=== PATIENT | male | born 1930 | race Hispanic/Latino ===

== ENCOUNTER 2017-06-21 08:02 | Emergency (ER) | payer MEDICARE, SELFPAY ==
[2017-06-21] MEDS ORDERED: Magnesium Citrate Oral SOL (300 ml) PO ONE (08:57)
[2017-06-21 09:27] LABS: RBC URINE 30 /hpf (0-3); URINE BILIRUBIN NEGATIVE (NEGATIVE); URINE BLOOD 2+ (NEGATIVE); URINE COLOR Yellow (YELLOW); URINE GLUCOSE (UA) NORMAL (Normal); URINE KETONE NEGATIVE (NEGATIVE); URINE LEUKOCYTE ESTERASE NEG Leu/uL (Negative); URINE PROTEIN NEGATIVE (NEGATIVE); WBC URINE < 1 /hpf (0-5)
[2017-06-21] MEDS ORDERED: Magnesium Citrate Oral SOL (300 ml) ONE (09:32)
--- NOTE | 2017-06-21 10:23 | C.PDOC ---
History Of Present Illness 87 y/o male presents to ED for evaluation of abdominal pain and dysuria for the last 4-5 days. Patient also states he has not had a BM fin 5-6 days. He admits to history of constipation. Patient was seen by visting nurse at home two days ago, has same complaints but denies being given any medication for constipation, instead was instructed to go to ED. Patient states he has taken a medication for constipation once, name unknown, without relief. He denies chest pain, shortness of breath, fever, chills, nausea, vomiting, hematuria. Time Seen by Provider: 06/21/17 08:13 Chief Complaint (Nursing): Abdominal Pain History Per: Patient History/Exam Limitations: no limitations Onset/Duration Of Symptoms: Days (5) Current Symptoms Are (Timing): Still Present Severity: Mild Location Of Pain/Discomfort: Diffuse Radiation Of Pain To:: None Quality Of Discomfort: "Pain" Associated Symptoms: Constipation, Urinary Symptoms (dysruia). denies: Fever, Chills, Nausea, Vomiting, Diarrhea, Loss Of Appetite, Back Pain, Chest Pain Exacerbating Factors: None Alleviating Factors: None. denies: OTC Meds Last Bowel Movement: Days Ago Additional History Per: Patient Past Medical History Reviewed: Historical Data, Nursing Documentation, Vital Signs Vital Signs: Last Vital Signs Temp 98.2 F 06/21/17 11:29 Pulse 86 06/21/17 11:29 Resp 20 06/21/17 11:29 BP 122/80 06/21/17 11:29 Pulse Ox 96 06/21/17 11:29 - Medical History PMH: CHF, HTN, Kidney Stones, Malignancy (SKIN), Chronic Kidney Disease Surgical History: Pacemaker - [facility] Procedures VACCINATION NEC (10/04/13) Family History: States: No Known Family Hx - Social History Hx Tobacco Use: No Hx Alcohol Use: No Hx Substance Use: No - Immunization History Hx Tetanus Toxoid Vaccination: No Hx Influenza Vaccination: No Hx Pneumococcal Vaccination: No Review Of Systems Except As Marked, All Systems Reviewed And Found Negative. Constitutional: Negative for: Fever, Chills Cardiovascular: Negative for: Chest Pain, Palpitations Respiratory: Negative for: Cough, Shortness of Breath Gastrointestinal: Positive for: Abdominal Pain, Constipation. Negative for: Nausea, Vomiting, Diarrhea Genitourinary: Positive for: Dysuria. Negative for: Frequency, Hematuria Musculoskeletal: Negative for: Back Pain Skin: Negative for: Rash Neurological: Negative for: Headache, Dizziness Physical Exam - Physical Exam Appears: Well, Non-toxic, No Acute Distress Skin: Warm, Dry, No Rash Head: Normacephalic Eye(s): bilateral: Normal Inspection Oral Mucosa: Moist Neck: Supple Cardiovascular: Rhythm Regular, No Murmur Respiratory: Normal Breath Sounds, No Rales, No Rhonchi, No Wheezing, Other ( speaking in full sentences) Gastrointestinal/Abdominal: Bowel Sounds, Soft, No Tenderness, Distention (mild) , No Guarding, No Rebound Back: No CVA Tenderness Extremity: Normal ROM Neurological/Psych: Oriented x3 ED Course And Treatment O2 Sat by Pulse Oximetry: 98 (RA) Pulse Ox Interpretation: Normal - Other Rad Obstructive series x-ray X-Ray: Interpreted by Me, Viewed By Me Interpretation: Large amount of stool. No air fluid levels. Progress Note: Obstructive series x-ray, UA ordered and reviewed. Pt was given Colace PO, Magnesium Citrate PO. Reevaluation Time: 10:30 Reassessment Condition: Improved (Patient is s/p large BM, states he feels much better. On exam, abdomen is soft and nontender. He is ambulating normally with his cane, and is well appearing and comfortable being discharged home. UA (-). Rxs given for colace and magnesium citrate, and patient instructed to increase water and fiber in his diet. He understands he should return to ED if symptoms worsen.) Disposition Counseled Patient/Family Regarding: Studies Performed, Diagnosis, Need For Followup, Rx Given - Disposition Referrals: Cheryl Langford MD [Staff Provider] - Disposition: HOME/ ROUTINE Disposition Time: 10:30 Condition: GUARDED Additional Instructions: FOLLOW UP WITH YOUR DOCTOR IN 1-2 DAYS INCREASE WATER AND FIBER IN YOUR DIET USE MEDICATIONS DIRECTED RETURN TO ER IF SYMPTOMS WORSEN Prescriptions: Docusate [Colace] 100 mg PO DAILY #30 cap Magnesium Citrate [Citrate of Mag] 300 ml PO ONCE PRN #1 bottle PRN Reason: Constipation Instructions: Constipation (ED), High Fiber Diet (ED) Forms: [employer] ([employer]) Print Language: BELARUSIAN - Clinical Impression Clinical Impression: Constipation - Scribe Statement The provider has reviewed the documentation as recorded by the Scribe Oj Domínguez All medical record entries made by the Scribe were at my direction and personally dictated by me. I have reviewed the chart and agree that the record accurately reflects my personal performance of the history, physical exam, medical decision making, and the department course for this patient. I have also personally directed, reviewed, and agree with the discharge instructions and disposition.
--- NOTE | 2017-06-21 11:29 | RAD ---
Abdomen five views History: Abdominal pain. Constipation. Comparison: None available. Findings: Prominent biapical pleural thickening with upper lobe granulomatous changes. Scattered nodularity throughout both lungs. Prominent diffuse increased interstitial lung markings. Mild bilateral hilar prominence. Left-sided pacemaker. Top normal heart size. Degenerative changes the spine and shoulders. Moderate fecal retention in the colon. Few dilated loops of small bowel seen within upper and mid abdomen. Degenerative changes in the spine and bilateral hips. Few radiopaque punctate calcifications project over the right renal fossa. Calcified phleboliths in the pelvis. Impression: Moderate fecal retention in the colon. Few dilated loops of small bowel in the upper to mid abdomen, nonspecific. Additional findings as above.
[2017-06-21 11:30] VITALS: BP 122/80; PULSE 86; RESP 20; TEMP 98.2
[2017-06-25 08:50] VITALS: O2SAT 98
== END 2017-06-21 12:24 | disposition home or self-care (01) ==
LOC: C.ER 08:02
DX: K59.00 Constipation, unspecified (principal)

== ENCOUNTER 2017-08-22 06:49 | Inpatient (IN) | payer MEDICARE, SELFPAY ==
--- NOTE | 2017-08-22 07:11 | C.PDOC ---
History Of Present Illness <FlashMarisol rothil - Last Filed: 08/23/17 14:26> <Katiuska Cummings - Last Filed: 08/26/17 09:08> 87 yo male, hx of chf, htn, presents with sob. as per family, started earlier in night. pt arrived tachpneic, diaphoretic, placed on bipap. limited hx provided. no fevers, cp, (+)dry cough, no abdominal pain, no other complaints ( Elliot Sepulveda) <FlashMarisol rothil - Last Filed: 08/23/17 14:26> <Katiuska Cummings - Last Filed: 08/26/17 09:08> Time Seen by Provider: 08/22/17 06:55 Chief Complaint (Nursing): Shortness Of Breath Past Medical History Reviewed: Historical Data, Nursing Documentation, Vital Signs - Medical History PMH: CHF, HTN, Kidney Stones, Malignancy (SKIN), Chronic Kidney Disease Surgical History: Pacemaker Family History: States: Unknown Family Hx - Social History Hx Tobacco Use: No Hx Alcohol Use: No Hx Substance Use: No - Immunization History Hx Tetanus Toxoid Vaccination: No Hx Influenza Vaccination: No Hx Pneumococcal Vaccination: No <FlashgonzalezElliot - Last Filed: 08/23/17 14:26> Vital Signs: Last Vital Signs Temp 97.8 F 08/26/17 04:00 Pulse 114 H 08/26/17 04:18 Resp 20 08/26/17 04:00 BP 128/80 08/26/17 05:38 Pulse Ox 95 08/26/17 04:00 - [facility] Procedures VACCINATION NEC (10/04/13) Review Of Systems Respiratory: Positive for: Shortness of Breath <FlashElliot roth - Last Filed: 08/23/17 14:26> Physical Exam - Physical Exam Appears: Well, No Acute Distress Skin: Normal Color, Warm, Dry Eye(s): bilateral: Normal Inspection, PERRL, EOMI Nose: Normal Throat: Normal Neck: Normal Cardiovascular: Rhythm Regular Respiratory: Normal Breath Sounds, Rales, Rhonchi (bL) Gastrointestinal/Abdominal: Normal Exam Back: Normal Inspection Extremity: Normal ROM <Elliot Sepulveda - Last Filed: 08/23/17 14:26> ED Course And Treatment - Laboratory Results Result Diagrams: 08/22/17 07:24 08/22/17 07:24 <Elliot Sepulveda - Last Filed: 08/23/17 14:26> - Laboratory Results Result Diagrams: 08/26/17 07:07 08/26/17 07:07 ECG: Interpreted By Me, Viewed By Me (sinus tachycardia 103 bpm, normal axis, ST depressions I, II, aVF, V4-V6) ECG Interpretation: Abnormal O2 Sat by Pulse Oximetry: 95 (95% FiO2) Pulse Ox Interpretation: Normal - Radiology CXR: Interpreted by Me, Viewed By Me (pulmonary vascular congestion B/L) - Physician Consult Information Physician Contacted: Cecy Meyer Outcome Of Conversation: Patient admitted under hospitalist service. <Katiuska Cummings - Last Filed: 08/26/17 09:08> Critical Care Time - Critical Care Note Total Time (in mins): 35 Documented critical care: time excludes all time spent performing seperately billable procedures. <Katiuska Cummings - Last Filed: 08/26/17 09:08> Medical Decision Making <Elliot Sepulveda - Last Filed: 08/23/17 14:26> <Katiuska Cummings - Last Filed: 08/26/17 09:08> Medical Decision Making: suspect chf vs pna vs sepsis- placed on bipap. endorsed to day shift pending all labs, vbg, ekg imaging, admission. (Elliot Sepulveda) Disposition - Disposition Disposition Time: 07:00 <Elliot Sepulveda - Last Filed: 08/23/17 14:26> - Disposition Disposition Time: 09:29 <Katiuska Cummings - Last Filed: 08/26/17 09:08> - Disposition Disposition: HOSPITALIZED Condition: FAIR - Clinical Impression Clinical Impression: CHF exacerbation, Dyspnea Addendum <Elliot Sepulveda - Last Filed: 08/23/17 14:26> <Katiuska Cummings - Last Filed: 08/26/17 09:08> Addendum: 08/22/17 08:54 Patient given SL nitro and IV Lasix, emergently placed on Bipap. No Tridil due to BP 120s/60s. On reassessment at aapprox 8:50pm- patient is significantly improved, POx 95-96% on Bipap, no accessory muscle use. Patient has diuresed approx 1800ml clear urine. CXR shows pulmonary vascular congestion. Will admit to telemetry for CHF exacerbation. EKG on arrival - sinus tachycardia 130bpm, normal axis, T wave inversions V3-V6, no ST changes. 08/22/17 09:[address] Luis, covering for Dr. Hughes - would like patient admitted to hospitalist service, requests echo be ordered. (Katiuska Cummings) Decision To Admit <Elliot Sepulveda - Last Filed: 08/23/17 14:26> - Pt Status Changed To: Hospital Disposition Of: Inpatient - Admit Certification Admit to Inpatient:: After my assessment, the patient will require hospitalization for at least two midnights. This is because of the severity of symptoms shown, intensity of services needed, and/or the medical risk in this patient being treated as an outpatient. - InPatient: Physician Admission Certification: I certify that this patient requires 2 or more midnights of care for the following reason:: see notes - . Bed Request Type: Telemetry Admitting Physician: Cecy Meyer <Katiuska Cummings - Last Filed: 08/26/17 09:08> - . Patient Diagnosis: CHF exacerbation, Dyspnea
[2017-08-22 07:26] LABS: BASO # 0.1 K/uL (0.0-0.2); BASO % 0.7 % (0.0-2.0); EOS # 0.1 K/uL (0.0-0.7); EOS % 0.4 % (0.0-4.0); LYMPH # 2.2 K/uL (1.0-4.3); LYMPH % 15.5 % (20.0-40.0); MEAN CORPUSCULAR HEMOGLOBIN 31.9 pg (27.0-31.0); MEAN CORPUSCULAR HGB CONC 32.9 g/dL (33.0-37.0); MONO # 0.5 K/uL (0.0-0.8); MONO % 3.2 % (0.0-10.0); NRBC % 0.1 % (0.0-2.0); RED CELL DISTRIBUTION WIDTH 15.8 % (11.5-14.5); WHITE BLOOD COUNT 14.2 K/uL (4.8-10.8)
[2017-08-22 07:42] LABS: VENOUS BLOOD GAS BASE EXCESS -3.3 mmol/L (0.0-2.0); VENOUS BLOOD GAS PCO2 69 mmHg (40-60); VENOUS BLOOD PH 7.19 (7.32-7.43)
[2017-08-22 07:46] LABS: ALB/GLOB RATIO 1.2 (1.0-2.1); ALKALINE PHOSPHATASE 121 U/L (38-126); ALT/SGPT 33 U/L (21-72); AST/SGOT 53 U/L (17-59); BILIRUBIN,TOTAL 1.2 mg/dL (0.2-1.3); BLOOD UREA NITROGEN 21 mg/dL (9-20); CALCIUM 8.9 mg/dl (8.6-10.4); CARBON DIOXIDE 26 mmol/L (22-30); CHLORIDE 101 mmol/L (98-107); GFR AFRICAN-AMERICAN > 60; GLUCOSE,RANDOM 196 mg/dL (75-110); POTASSIUM 3.6 mmol/L (3.6-5.2); SODIUM 138 mmol/L (132-148); TOTAL PROTEIN 7.7 g/dL (6.3-8.3)
[2017-08-22 08:40] LABS: RBC URINE 34 /hpf (0-3); URINE BACTERIA FEW (<OCC); URINE BILIRUBIN NEGATIVE (NEGATIVE); URINE BLOOD 2+ (NEGATIVE); URINE COLOR Yellow (YELLOW); URINE GLUCOSE (UA) NORMAL (Normal); URINE HYALINE CAST >20 /lpf (0-2); URINE KETONE NEGATIVE (NEGATIVE); URINE LEUKOCYTE ESTERASE 3+ Leu/uL (Negative); URINE PROTEIN 1+ mg/dL (NEGATIVE); URINE UROBILINOGEN NORMAL mg/dL (0.2-1.0); WBC URINE 189 /hpf (0-5)
[2017-08-22] MEDS ORDERED: cefTRIAXone IV 1 gm in Dextros 50 ML IVPB ONE (15:43)
[2017-08-22] MEDS ORDERED: Sodium Chloride 0.9% 1,000 ML IV ONE ×2 (15:45→16:45)
--- NOTE | 2017-08-22 15:52 | PCM.RRT ---
Addendum entered and electronically signed by Silver Torres DO 08/22/17 17:17: b/l knee x-rays show no acute fracture, no dislocation, no joint effusion head CT shows chronic microvascular changes with greater than average space for age also shows enlarged ventricles consistent with NPH; given patients current history of being unsteady with gait (hx of falls at home as per and patient ), slightly off demeanor, and inability to control urine However, will need to evaluate once UTI has been appropriately treated as well Original Note: DIE CAST OPERATOR Nurses Assessment - Situation Date: 08/22/17 Time DIE CAST OPERATOR was called: 15:10 DIE CAST OPERATOR Responder Arrival Time:: 15:15 DIE CAST OPERATOR Location:: Med/Surg Room Number: 672A DIE CAST OPERATOR Called By: RN - IV IV Inserted during DIE CAST OPERATOR?: No - Respiratory DIE CAST OPERATOR Delivery Method: Room Air - Ventilator Settings FIO2 (% Oxygen): 60 - Medication Medications Administered During DIE CAST OPERATOR: Will be giving Ceftriaxone 1g, 2L NS, and repeat VBG lactate - Stat Labs Ordered DIE CAST OPERATOR Stat Labs Ordered: LACTIC ACID CPR started during DIE CAST OPERATOR?: No - Shalonda Coma Scale Coma Scale Eye Opening: Spontaneous Coma Scale Motor: Obeys Commands Movement Coma Scale Verbal: Oriented Coma Scale Total: 15 - Sepsis Screen Part 2 Sepsis Screen Part 2: Glucose elevated, Pt not on steroids, WBC over 12,000 - Time DIE CAST OPERATOR Ended Time DIE CAST OPERATOR Ended: 15:49 - Vital Signs at end of DIE CAST OPERATOR Vital Signs at end of DIE CAST OPERATOR: 115/80 - Recommendations 5) DIE CAST OPERATOR Level of Care Recommendations: Remain in current setting Notifications: Attending Physician, Family or Designated Caregiver I.Reason for DIE CAST OPERATOR - A) Acute Change in Patient: (Select all that apply): Staff member or family is worried about patient - Neurological Status (Select all that apply): Alert, Responsive, Oriented, Verbal, Follows Commands - Respiratory Oxygen Delivery Method: Room Air - Constitutional Appears: Non-toxic - Head Head Exam: ATRAUMATIC - Eyes Eye Exam: EOMI - Respiratory Exam Respiratory Exam: Clear to Ausculation Bilateral, NORMAL BREATHING PATTERN. absent: Rales, Rhonchi, Wheezes Additional comments: mild crackles on exam - Cardiovascular Exam Cardiovascular Exam: Tachycardia, REGULAR RHYTHM, +S1, +S2 - GI/Abdominal Exam GI & Abdominal Exam: Soft, Normal Bowel Sounds - Neurological Exam Neurological Exam: Alert, Awake, CN II-XII Intact, Oriented x3. absent: Normal Gait (patient is extremely unsteady ) - Extremities Exam Extremities Exam: Full ROM, Normal Inspection Plan - Assessment of Findings&Treatment Plan Pt was trying to use commode; fell onto knees, remembers entire event, fall witnessed by significant other Patient only hit knees and was brancing self up on bed with arms; never hit head , no head trauma, no hip instability On review of labs, patient had positive UA, elevated WBC, tachycardia, and lactate of 3.2; code sepsis was never called at 7am and antibiotics were never given Patient is currently off of the floor getting head CT and b/l knee xrays EKG shows tachycardia with nonspecific ST-T wave changes consistent with prior EKG Patient will be given stat 1g of Ceftriaxone for UTI 1L of NS; although patient is here for CHF exacerbation so fluids need to be somewhat light repeat VBG lactate ordered Patient will remain on telemetry
--- NOTE | 2017-08-22 16:30 | CT ---
PROCEDURE: CT HEAD WITHOUT CONTRAST. HISTORY: Fall COMPARISON: None available. TECHNIQUE: Axial computed tomography images were obtained through the head/brain without intravenous contrast. Radiation dose: Total exam DLP = 1507.12 mGy-cm. This CT exam was performed using one or more of the following dose reduction techniques: Automated exposure control, adjustment of the mA and/or kV according to patient size, and/or use of iterative reconstruction technique. FINDINGS: HEMORRHAGE: No intracranial hemorrhage. BRAIN: Moderate diffuse/confluent chronic white matter ischemic changes seen extending peripherally into the deep and subcortical white matter both cerebral hemispheres. In addition, there are are few scattered chronic bilateral basal nuclei lacunar type infarcts. . Vascular calcifications are present. Moderate to significant volume loss VENTRICLES: Moderate -significant dilatation of the 3rd and lateral ventricles and normal-appearing 4th ventricle likely in part due to central volume loss. Rule out chronic compensated obstructive hydrocephalus. The possibility of normal pressure hydrocephalus could be considered if the clinical triad of dementia, ataxia and incontinence present. CALVARIUM: No acute calvarial fractures. PARANASAL SINUSES: Unremarkable as visualized. No significant inflammatory changes. MASTOID AIR CELLS: Unremarkable as visualized. No inflammatory changes. OTHER FINDINGS: None. IMPRESSION: No evidence of acute intracranial hemorrhage. Moderate to significant chronic white matter ischemic changes with scattered chronic bilateral basal nuclei lacunar type infarcts. The dilatation of the 3rd and lateral ventricles particularly the atria and occipital horns. Rule out chronic compensated obstructive hydrocephalus. ; see above discussion for additional
[2017-08-22 16:45] LABS: VENOUS BLOOD GAS BASE EXCESS 5.7 mmol/L (0.0-2.0); VENOUS BLOOD GAS PCO2 53 mmHg (40-60); VENOUS BLOOD PH 7.39 (7.32-7.43)
--- NOTE | 2017-08-22 17:25 | CP.PCM.HP ---
History of Present Illness - History of Present Illness History of Present Illness: Chief complaint: Shortness of breath History of present illness: 87-year-old male with history of congestive heart failure, hypertension, pacemaker placement. Patient was doing okay yesterday, but this morning he woke up, and suddenly he started having some discomfort, and also started having some shortness of breath. Gradually he started having flushing in the face, redness, and he started having increasing difficulty in breathing, and he was gasping for air. Patient's immediately called 911, and he was brought to the emergency room. According to the , he was having frequent to falls at home. He has some multiple abrasions in the upper extremity, and bleeding skin abrasions noted. Today he was also trying to get up, and unable to stand up and he fell. He claims that he has a severe neuropathy, causing trouble in feeling the right leg, and also frequent falling. During the episode of shortness of breath, he did not have any palpitation or chest pain. No dizziness. No cough, no fever, no nausea, no vomiting. He denies any urinary problems. No diarrhea. He did not have any recent doctor visit, but he is taking the medications at least 5 pills, but the patient is not remembering the medication. Past medical history: CHF, hypertension, renal stones, skin malignancy. Surgical history pacemaker. Patient also had a possibility of right lower abdominal scar appendectomy likely. Family history: None Social history: Remote history of smoking. No alcohol. Immunization history not available Review of systems: Patient is currently no headache. Visual symptoms negative, vision is able to see well. Denies any throat pain. No cough, shortness of breath, wheezing. No chest pain. Denies any abdominal pain, scar noted. Extremities multiple abrasions in the right side of the upper extremities more than the left side. Vital signs reviewed No neck vein distention noted Chest good air entry bilaterally, no wheezing or rales noted CVS regular heart sound, no murmur noted Abdomen soft, nontender. 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 Urine analysis showing evidence of possible UTI EKG showing inferior leads and lateral leads ischemic changes noted. The T-wave inversion. Chest x-ray showing diffuse acute changes, likely CHF pattern. Less likely pneumonia Assessment and recommendation: 87-year-old male with history of congestive heart failure, hypertension, pacemaker placement now admitted with possible decompensated heart failure. Unclear whether diastolic, patient will need echocardiogram. Patient also has EKG changes. Underlying CAD cannot be ruled out, will get cardiac enzymes monitoring. Cardiology evaluation. Possible urinary tract infection, and associated sepsis. Patient also has a significant peripheral neuropathy, but unclear etiology, having frequent falls. Pacemaker. Hypertension. History of renal insufficiency in the past. Underlying dementia possible. DVT GI prophylaxis. Antibiotic. Cultures. Septic workup is already ordered. Will continue to monitor and will follow the patient. Present on Admission - Present on Admission Any Indicators Present on Admission: No History of DVT/PE: No History of Uncontrolled Diabetes: No Urinary Catheter: No Decubitus Ulcer Present: No Review of Systems - Review of Systems All systems: reviewed and no additional remarkable complaints except Past Patient History - Past Social History Smoking Status: Never Smoked - CARDIAC Hx Congestive Heart Failure: Yes Hx Hypertension: Yes Hx Pacemaker: Yes - RENAL Hx Chronic Kidney Disease: Yes Hx Kidney Stones: Yes - HEMATOLOGICAL/ONCOLOGICAL Hx Blood Disorders: Yes Hx Cancer: Yes (PROSTATE) - MUSCULOSKELETAL/RHEUMATOLOGICAL Hx Falls: Yes - GENITOURINARY/GYNECOLOGICAL Hx Genitourinary Disorders: Yes Hx Prostate Cancer: Yes - PSYCHIATRIC Hx Substance Use: No - SURGICAL HISTORY Hx Surgeries: No - ANESTHESIA Hx Anesthesia: No Hx Anesthesia Reactions: No Hx Malignant Hyperthermia: No Has any member of the family had a problem w/ anesthesia?: No Meds Allergies/Adverse Reactions: Allergies Allergy/AdvReac Type Severity Reaction Status Date / Time No Known Allergies Allergy Unverified 06/21/17 08:10 Physical Exam - Constitutional Appears: Well Results - Vital Signs Recent Vital Signs: Last Vital Signs Temp 98.1 F 08/22/17 11:31 Pulse 98 H 08/22/17 11:31 Resp 32 H 08/22/17 11:31 BP 101/72 08/22/17 11:31 Pulse Ox 99 08/22/17 11:31 - Labs Result Diagrams: 08/22/17 07:24 08/22/17 07:24 Labs: Laboratory Results - last 24 hr 08/22/17 08/22/17 08/22/17 07:24 07:24 07:24 WBC 14.2 H D RBC 4.84 Hgb 15.5 D Hct 47.0 MCV 97.0 H D MCH 31.9 H MCHC 32.9 L RDW 15.8 H Plt Count 301 D MPV 9.0 Neut % (Auto) 80.2 H Lymph % (Auto) 15.5 L [place] % (Auto) 3.2 Eos % (Auto) 0.4 Baso % (Auto) 0.7 Neut # 11.4 H Lymph # 2.2 [place] # 0.5 Eos # 0.1 Baso # 0.1 PT 11.2 INR 1.0 APTT 26 pO2 VBG pH VBG pCO2 VBG HCO3 VBG Total CO2 VBG O2 Sat (Calc) VBG Base Excess VBG Potassium Glucose Lactate Crit Value Called To Crit Value Called By Crit Value Read Back Blood Gas Notified Time Sodium 138 Potassium 3.6 Chloride 101 Carbon Dioxide 26 Anion Gap 14 BUN 21 H Creatinine 1.1 Est GFR ( Amer) > 60 Est GFR (Non-Af Amer) > 60 POC Glucose (mg/dL) Random Glucose 196 H Calcium 8.9 Total Bilirubin 1.2 AST 53 ALT 33 Alkaline Phosphatase 121 Troponin I 0.0820 NT-Pro-B Natriuret Pep 9770 H Total Protein 7.7 Albumin 4.3 Globulin 3.5 Albumin/Globulin Ratio 1.2 Venous Blood Potassium Urine Color Urine Clarity Urine pH Ur Specific Dougherty Urine Protein Urine Glucose (UA) Urine Ketones Urine Blood Urine Nitrate Urine Bilirubin Urine Urobilinogen Ur Leukocyte Esterase Urine WBC (Auto) Urine RBC (Auto) Ur Squamous Epith Cells Urine Bacteria Hyaline Casts 08/22/17 08/22/17 08/22/17 07:35 08:19 15:15 WBC RBC Hgb Hct MCV MCH MCHC RDW Plt Count MPV Neut % (Auto) Lymph % (Auto) [place] % (Auto) Eos % (Auto) Baso % (Auto) Neut # Lymph # [place] # Eos # Baso # PT INR APTT pO2 22 L VBG pH 7.19 L* VBG pCO2 69 H* VBG HCO3 20.4 VBG Total CO2 28.5 H VBG O2 Sat (Calc) 36.8 L VBG Base Excess -3.3 L VBG Potassium 3.5 L Glucose 212 H Lactate 3.2 H Crit Value Called To Do amy rivera Crit Value Called By Denzel ríos Crit Value Read Back Y Blood Gas Notified Time 740 Sodium 143.0 Potassium Chloride 107.0 Carbon Dioxide Anion Gap BUN Creatinine Est GFR ( Amer) Est GFR (Non-Af Amer) POC Glucose (mg/dL) 145 H Random Glucose Calcium Total Bilirubin AST ALT Alkaline Phosphatase Troponin I NT-Pro-B Natriuret Pep Total Protein Albumin Globulin Albumin/Globulin Ratio Venous Blood Potassium 3.5 L Urine Color Yellow Urine Clarity Hazy Urine pH 5.0 Ur Specific [place]herty 1.008 Urine Protein 1+ H Urine Glucose (UA) Normal Urine Ketones Negative Urine Blood 2+ H Urine Nitrate Negative Urine Bilirubin Negative Urine Urobilinogen Normal Ur Leukocyte Esterase 3+ H Urine WBC (Auto) 189 H Urine RBC (Auto) 34 H Ur Squamous Epith Cells 1 Urine Bacteria Few H Hyaline Casts >20 H 08/22/17 16:40 WBC RBC Hgb Hct MCV MCH MCHC RDW Plt Count MPV Neut % (Auto) Lymph % (Auto) [place] % (Auto) Eos % (Auto) Baso % (Auto) Neut # Lymph # [place] # Eos # Baso # PT INR APTT pO2 21 L VBG pH 7.39 VBG pCO2 53 VBG HCO3 27.7 VBG Total CO2 33.7 H VBG O2 Sat (Calc) 36.8 L VBG Base Excess 5.7 H VBG Potassium 3.9 Glucose 122 H Lactate 2.0 Crit Value Called To Crit Value Called By Crit Value Read Back Blood Gas Notified Time Sodium 138.0 Potassium Chloride 103.0 Carbon Dioxide Anion Gap BUN Creatinine Est GFR ( Amer) Est GFR (Non-Af Amer) POC Glucose (mg/dL) Random Glucose Calcium Total Bilirubin AST ALT Alkaline Phosphatase Troponin I NT-Pro-B Natriuret Pep Total Protein Albumin Globulin Albumin/Globulin Ratio Venous Blood Potassium 3.9 Urine Color Urine Clarity Urine pH Ur Specific [place]herty Urine Protein Urine Glucose (UA) Urine Ketones Urine Blood Urine Nitrate Urine Bilirubin Urine Urobilinogen Ur Leukocyte Esterase Urine WBC (Auto) Urine RBC (Auto) Ur Squamous Epith Cells Urine Bacteria Hyaline Casts Assessment & Plan (1) CHF exacerbation Status: Acute (2) Acute ischemic heart disease Status: Acute (3) Urinary tract infection Status: Acute (4) Fall Status: Acute
[2017-08-22 17:51] LABS: TROPONIN I 0.135 ng/mL (0.00-0.120)
--- NOTE | 2017-08-22 18:58 | RAD ---
PROCEDURE: Bilateral Knee Radiographs. HISTORY: fall COMPARISON: None. FINDINGS: BONES: No evidence of acute displaced fracture nor dislocation. JOINTS: Joint spaces relatively preserved. Small posterior patellar osteophyte formation. SOFT TISSUES: There are no radiopaque foreign bodies. Questionable mild vascular calcifications. JOINT EFFUSION: No significant joint effusion. OTHER FINDINGS: None. IMPRESSION: Displaced fracture nor dislocation.
--- NOTE | 2017-08-22 19:05 | RAD ---
PROCEDURE: CHEST RADIOGRAPH, 1 VIEW HISTORY: chest pain COMPARISON: Comparison chest dated 11/14/2013. FINDINGS: LUNGS: Mild diffuse pulmonary edema/ CHF with bilateral lower lobe alveolar-type infiltrates. PLEURA: Questionable small left effusion. CARDIOVASCULAR: Heart size is upper limits of normal. No change single lead pacemaker/ defibrillator. OSSEOUS STRUCTURES: No significant abnormalities. VISUALIZED UPPER ABDOMEN: Normal. OTHER FINDINGS: None. IMPRESSION: Pulmonary edema/ CHF. All.
--- NOTE | 2017-08-22 19:36 | CP.PCM.PN ---
Subjective - Date & Time of Evaluation Date of Evaluation: 08/22/17 Time of Evaluation: 19:37 - Subjective Subjective: positive troponin, no chest pain, No shortness of breath we'll continue the BiPAPBeta olimpia, aspirin, Objective - Vital Signs/Intake and Output Vital Signs (last 24 hours): Temp Pulse Resp BP Pulse Ox 98.1 F 98 H 32 H 110/60 99 08/22/17 11:31 08/22/17 11:31 08/22/17 11:31 08/22/17 18:20 08/22/17 11:31 Intake and Output: 08/22/17 08/23/17 18:59 06:59 Output Total 2019 Balance -2019 - Medications Medications: Current Medications Aspirin (Aspirin) 325 mg PO DAILY [facility] Last Admin: 08/22/17 18:20 Dose: 325 mg Bacitracin (Bacitracin) 1 ea TOP DAILY [facility] Famotidine (Pepcid) 20 mg PO DAILY [facility] Furosemide (Lasix) 40 mg IVP BID [facility] Heparin Sodium (Porcine) (Heparin) 5,000 units SC Q8 [facility] Ceftriaxone Sodium (Rocephin Iv 1 Gm Duplex) 50 mls @ 100 mls/hr IVPB 0300, 1500 [facility] Metoprolol Tartrate (Lopressor) 25 mg PO BID [facility] Last Admin: 08/22/17 18:20 Dose: 25 mg - Labs Labs: 08/22/17 07:24 08/22/17 07:24 PT 11.2 SECONDS (9.7-12.2) 08/22/17 07:24 INR 1.0 08/22/17 07:24 APTT 26 SECONDS (21-34) 08/22/17 07:24 Assessment and Plan (1) CHF exacerbation Status: Acute (2) Acute ischemic heart disease Status: Acute (3) Urinary tract infection Status: Acute (4) Fall Status: Acute (5) Non-ST elevation (NSTEMI) myocardial infarction Assessment & Plan: a recent troponin was sligh positive. Spoke to the nurse. Cardiology follow-up Status: Acute
[2017-08-22] MEDS ORDERED: cefTRIAXone IV 1 gm in Dextros 50 ML IVPB SCH (22:00)
[2017-08-23 02:58] LABS: TROPONIN I 0.138 ng/mL (0.00-0.120)
[2017-08-23] MEDS: cefTRIAXone IV 1 gm in Dextros 50 ML IVPB SCH ×2 (03:07→15:33)
--- NOTE | 2017-08-23 03:08 | PCM.SEPTIC ---
Sepsis Progress Note - Reassessment Type Date of Evaluation: 08/22/17 Time of Evaluation: 22:00 Reassessment Type: Non-invasive reassessment - Non Invasive Reassessment Were the most recent vital sign reviewed: Yes Vital Sign (Latest): Temp Pulse Resp BP Pulse Ox 98.1 F 85 32 H 90/52 L 99 08/22/17 11:31 08/22/17 23:50 08/22/17 11:31 08/22/17 21:47 08/22/17 11:31 Cardiovascular: Yes: Regular Rate, Rhythm Respiratory: Yes: Normal Breath Sounds. No: Respiratory Distress Capillary Refill: Normal (Less than 2 sec) Skin: Normal Color, Warm
[2017-08-23] MEDS ORDERED: Pneumococcal 23-Valent Vaccine IM ONE (08:04)
--- NOTE | 2017-08-23 08:07 | CP.PCM.PN ---
Subjective - Date & Time of Evaluation Date of Evaluation: 08/23/17 Time of Evaluation: 08:04 - Subjective Subjective: Patient is currently having no chest pain. He was using the CPAP at night, but now he is comfortable. No nausea. Feeling hungry. No shortness of breath. No fever, no abdominal pain. Objective - Vital Signs/Intake and Output Vital Signs (last 24 hours): Temp Pulse Resp BP Pulse Ox 97.4 F L 85 20 98/62 L 100 08/23/17 04:33 08/23/17 04:33 08/23/17 04:33 08/23/17 04:33 08/23/17 04:33 Intake and Output: 08/23/17 08/23/17 06:59 18:59 Output Total 200 Balance -200 Vital signs reviewed No neck vein distention noted Chest good air entry bilaterally, no wheezing or rales noted CVS regular heart sound, no murmur noted Abdomen soft, nontender. 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, no functional neurological deficit - Medications Medications: Current Medications Acetaminophen (Tylenol 325mg Tab) 650 mg PO Q6 PRN PRN Reason: Pain, Mild (1-3) Last Admin: 08/22/17 21:48 Dose: 650 mg Aspirin (Aspirin) 325 mg PO DAILY [facility] Last Admin: 08/22/17 18:20 Dose: 325 mg Bacitracin (Bacitracin) 1 ea TOP DAILY [facility] Famotidine (Pepcid) 20 mg PO DAILY [facility] Furosemide (Lasix) 40 mg IVP BID [facility] Last Admin: 08/22/17 21:47 Dose: Not Given Heparin Sodium (Porcine) (Heparin) 5,000 units SC Q8 [facility] Last Admin: 08/23/17 06:15 Dose: 5,000 units Ceftriaxone Sodium (Rocephin Iv 1 Gm Duplex) 50 mls @ 100 mls/hr IVPB 0300, 1500 [facility] Last Admin: 08/23/17 03:07 Dose: 100 mls/hr Metoprolol Tartrate (Lopressor) 25 mg PO BID [facility] Last Admin: 08/22/17 18:20 Dose: 25 mg - Labs Labs: 08/22/17 07:24 08/22/17 07:24 PT 11.2 SECONDS (9.7-12.2) 08/22/17 07:24 INR 1.0 08/22/17 07:24 APTT 36 SECONDS (21-34) H D 08/23/17 06:06 mild elevation of the troponin noted Assessment and Plan (1) CHF exacerbation Assessment & Plan: patient possibly has a CHF exacerbation, systolic most likely. Patient does not have any sepsis, there is no evidence, and most likely patient has a lactate because of the severe CHF improved markedly. Elevation of the WBC secondary to possible UTI, and also possible multiple skin abrasions on fall and stress. Status: Acute (2) Acute ischemic heart disease Assessment & Plan: awaiting cardiology consultation, nput Echocardiogram. Beta olimpia.aspirin. Status: Acute (3) Urinary tract infection Status: Acute (4) Fall Status: Acute (5) Non-ST elevation (NSTEMI) myocardial infarction Status: Acute
[2017-08-23 08:57] LABS: TROPONIN I 0.1 ng/mL (0.00-0.120)
--- NOTE | 2017-08-23 09:21 | RAD ---
HISTORY: chf COMPARISON: Comparison chest dated 08/22/2017. FINDINGS: LUNGS: Interval improvement pulmonary edema/ CHF. Re- demonstrated is a calcified pleural plaque right lung apex/ upper lobe. Residual bibasilar atelectasis and/or improving alveolar-type infiltrates. Small bilateral effusions also felt be present left larger than right. PLEURA: As above. No pneumothorax apparent. CARDIOVASCULAR: Heart remains enlarged. No change single lead pacemaker/defibrillator OSSEOUS STRUCTURES: No significant abnormalities. VISUALIZED UPPER ABDOMEN: Normal. OTHER FINDINGS: None. IMPRESSION: Interval improvement pulmonary edema/ CHF. Re- demonstrated is a calcified pleural plaque right lung apex/ upper lobe. Residual bibasilar atelectasis and/or improving alveolar-type infiltrates. Small bilateral effusions also felt be present left larger than right.
[2017-08-23] MEDS: Bacitracin 500 Units/gm Oint Foilpak UD TOP SCH (09:32)
[2017-08-23] MEDS ORDERED: Azithromycin 500 MG in Sodium Chloride 0.9% 250 ML IVPB SCH (10:00)
--- NOTE | 2017-08-23 10:02 | CP.PCM.CON ---
History of Present Illness - History of Present Illness History of Present Illness: The pt is an 87 year old man with CAD, (S/) PCI of the LCX propre and an OM1 brach in 2009. Pt had reduced LV EF, and an ICD. Pt has not been in the office since 2014, and has had home care. Pt was gasping for air the other day at home, 911 was called, and pt admitted and treated for CHF. Feels much better today. His jessica inhibitor and aldactone have been held in the hospital. ECG shows nsr, lvh with repol, and there is a trivial TNI elevation. Pt is frail, falls, and has gotten home care. Review of Systems - Review of Systems All systems: reviewed and no additional remarkable complaints except (as above.) Past Patient History - Past Social History Smoking Status: Never Smoked - CARDIAC Hx Congestive Heart Failure: Yes Hx Hypertension: Yes Hx Pacemaker: Yes - RENAL Hx Chronic Kidney Disease: Yes Hx Kidney Stones: Yes - HEMATOLOGICAL/ONCOLOGICAL Hx Blood Disorders: Yes Hx Cancer: Yes (PROSTATE) - MUSCULOSKELETAL/RHEUMATOLOGICAL Hx Falls: Yes - GENITOURINARY/GYNECOLOGICAL Hx Genitourinary Disorders: Yes Hx Prostate Cancer: Yes - PSYCHIATRIC Hx Substance Use: No - SURGICAL HISTORY Hx Surgeries: No - ANESTHESIA Hx Anesthesia: No Hx Anesthesia Reactions: No Hx Malignant Hyperthermia: No Has any member of the family had a problem w/ anesthesia?: No Meds Allergies/Adverse Reactions: Allergies Allergy/AdvReac Type Severity Reaction Status Date / Time No Known Allergies Allergy Unverified 06/21/17 08:10 - Medications Medications: Current Medications Acetaminophen (Tylenol 325mg Tab) 650 mg PO Q6 PRN PRN Reason: Pain, Mild (1-3) Last Admin: 08/22/17 21:48 Dose: 650 mg Aspirin (Aspirin) 325 mg PO DAILY [facility] Last Admin: 08/23/17 09:16 Dose: 325 mg Bacitracin (Bacitracin) 1 ea TOP DAILY [facility] Last Admin: 08/23/17 09:32 Dose: 1 ea Famotidine (Pepcid) 20 mg PO DAILY [facility] Last Admin: 08/23/17 09:16 Dose: 20 mg Furosemide (Lasix) 40 mg IVP BID [facility] Last Admin: 08/23/17 09:19 Dose: Not Given Heparin Sodium (Porcine) (Heparin) 5,000 units SC Q8 [facility] Last Admin: 08/23/17 06:15 Dose: 5,000 units Ceftriaxone Sodium (Rocephin Iv 1 Gm Duplex) 50 mls @ 100 mls/hr IVPB 0300, 1500 [facility] Last Admin: 08/23/17 03:07 Dose: 100 mls/hr Metoprolol Tartrate (Lopressor) 25 mg PO BID [facility] Last Admin: 08/23/17 09:20 Dose: 25 mg Physical Exam - Constitutional Appears: Cachectic - Head Exam Head Exam: ATRAUMATIC - Eye Exam Eye Exam: EOMI Pupil Exam: NORMAL ACCOMODATION - ENT Exam ENT Exam: Mucous Membranes Moist - Neck Exam Neck exam: Positive for: Normal Inspection - Respiratory Exam Respiratory Exam: Rales (Right lung has bronchial breath sounds and crepitus.) - Cardiovascular Exam Cardiovascular Exam: REGULAR RHYTHM, Systolic Murmur (2/6 SYstolic murmur apex) - Extremities Exam Extremities exam: Positive for: normal inspection - Back Exam Back exam: NORMAL INSPECTION - Neurological Exam Neurological exam: Alert, CN II-XII Intact, Oriented x3 - Skin Skin Exam: Normal Color Results - Vital Signs Recent Vital Signs: Last Vital Signs Temp 98.1 F 08/23/17 08:00 Pulse 93 H 08/23/17 08:00 Resp 20 08/23/17 08:00 BP 98/58 L 08/23/17 09:20 Pulse Ox 98 08/23/17 08:00 - Labs Result Diagrams: 08/22/17 07:24 08/22/17 07:24 Labs: Laboratory Results - last 24 hr 08/22/17 08/22/17 08/22/17 15:15 16:40 17:16 APTT pO2 21 L VBG pH 7.39 VBG pCO2 53 VBG HCO3 27.7 VBG Total CO2 33.7 H VBG O2 Sat (Calc) 36.8 L VBG Base Excess 5.7 H VBG Potassium 3.9 Sodium 138.0 Chloride 103.0 Glucose 122 H Lactate 2.0 POC Glucose (mg/dL) 145 H Total Creatine Kinase 38 L CK-MB (Mass) 2.20 Troponin I 0.1350 H* Venous Blood Potassium 3.9 08/23/17 08/23/17 08/23/17 01:09 06:06 06:06 APTT 36 H D pO2 VBG pH VBG pCO2 VBG HCO3 VBG Total CO2 VBG O2 Sat (Calc) VBG Base Excess VBG Potassium Sodium Chloride Glucose Lactate POC Glucose (mg/dL) Total Creatine Kinase 48 L 36 L CK-MB (Mass) 1.50 1.84 Troponin I 0.1380 H* 0.1000 Venous Blood Potassium - EKG Data EKG Interpreted by: Myself (as per my hpi) EKG shows normal: Sinus rhythm Assessment & Plan - Assessment and Plan (Free Text) Assessment: 1. S/P PCI: cad. With trivial tni elevation. Due to pts frail state and advanced age, no invasive w/u is advised at this time. Statin, asa 2. CHF: lungs are still not clear; Echo was not done: I ordered, need to reassess LV EF: re add jessica inhib and aldactone. 3. Will ask [employer] rep to come and check ICD, as no check for 2.5 years as pt has not come to office.
--- NOTE | 2017-08-23 19:00 | CARD ---
APPROVED REPORT EXAM: Two-dimensional and M-mode echocardiogram with Doppler and color Doppler. Other Information Quality : GoodRhythm : INDICATION Acute [place] Dyspnea Congestive Heart Failure Surgery/Intervention ICD/Pacemaker: 2D DIMENSIONS IVSd0.8 (0.7-1.1cm)LVDd7.1 (3.9-5.9cm) PWd0.8 (0.7-1.1cm)LVDs6.6 (2.5-4.0cm) FS (%) 7.2 %LVEF (%)15.6 (>50%) M-Mode DIMENSIONS Left Atrium (MM)3.94 (2.5-4.0cm)Aortic Root3.16 (2.2-3.7cm) Aortic Cusp Exc.2.31 (1.5-2.0cm) Mitral Valve MV E Pmsliwdb006.3cm/sE/A ratio0.0 TDI E/Lateral E'0.0E/Medial E'0.0 Tricuspid Valve TR Peak [id number]/sTR Peak Gr.[id number] LEFT VENTRICLE The Left Ventricle is severely dilated. There is normal left ventricular wall thickness. The Ejection Fraction is 15-20%. There is global hypokinesis of the left ventricle. The left atrial pressure is moderately elevated. moderately increased la volume index. advanced lv diastolic dysfunction., RIGHT VENTRICLE The right ventricle is normal size. Systolic function is moderately reduced. ATRIA The left atrium is borderline dilated. The right atrium is mildly dilated. The interatrial septum is intact with no evidence for an atrial septal defect. AORTIC VALVE The aortic valve is mildly sclerotic. The aortic valve is trileaflet. There is trace aortic regurgitation. MITRAL VALVE sclerotic mitral leaflets. Mitral regurgitation is severe. TRICUSPID VALVE The tricuspid valve is normal in structure. There is moderate to severe tricuspid regurgitation. Right ventricular systolic pressure is estimated at 40 mmHg. There is mild pulmonary hypertension. PULMONIC VALVE The pulmonary valve is normal in structure. GREAT VESSELS The aortic root is normal size. The aortic root displays mild sclerocalcific changes of the aortic root. The IVC is normal in size and collapses >50% with inspiration. PERICARDIAL EFFUSION There is no pericardial effusion. <Conclusion> The Left Ventricle is severely dilated. The Ejection Fraction is 15-20%. There is global hypokinesis of the left ventricle. The left atrial pressure is moderately elevated. moderately increased la volume index. advanced lv diastolic dysfunction., Systolic function is moderately reduced. Mitral regurgitation is severe. There is moderate to severe tricuspid regurgitation. Right ventricular systolic pressure is estimated at 40 mmHg. There is mild pulmonary hypertension. icd leads in ra,rv.
[2017-08-23 19:04] LABS: RBC URINE 14 /hpf (0-3); URINE BACTERIA MOD (<OCC); URINE BILIRUBIN NEGATIVE (NEGATIVE); URINE BLOOD 2+ (NEGATIVE); URINE COLOR Yellow (YELLOW); URINE GLUCOSE (UA) NORMAL (Normal); URINE KETONE NEGATIVE (NEGATIVE); URINE LEUKOCYTE ESTERASE 3+ Leu/uL (Negative); URINE PROTEIN 2+ mg/dL (NEGATIVE); URINE UROBILINOGEN NORMAL mg/dL (0.2-1.0); WBC CLUMPS MANY /hpf; WBC URINE 593 /hpf (0-5)
[2017-08-24 03:50] LABS: ARTERIAL BLOOD GAS MODE BiPAP; ARTERIAL BLOOD HGB O2 SAT 95.6 % (95.0-98.0); CARBOXYHEMOGLOBIN 1.9 % (0.5-1.5); DRAW SITE RB; HHB 1.1 % (0.0-5.0); METHEMOGLOBIN 1.4 % (0.0-3.0)
[2017-08-24] MEDS: cefTRIAXone IV 1 gm in Dextros 50 ML IVPB SCH ×2 (03:56→14:23)
--- NOTE | 2017-08-24 09:11 | RAD ---
HISTORY: SOB COMPARISON: Chest radiograph performed approximately 14 hours prior FINDINGS: LUNGS: Increased conspicuity of bilateral patchy opacities, most prominent in the right upper and lower lung mcnair as well as in the lateral aspect left upper lobe. PLEURA: Tenting of the left hemidiaphragm. No pneumothorax apparent. CARDIOVASCULAR: Left subclavian access AICD/pacemaker redemonstrated. Cardiomediastinal silhouette unchanged. OSSEOUS STRUCTURES: Unchanged. VISUALIZED UPPER ABDOMEN: Normal. OTHER FINDINGS: None. IMPRESSION: Increased conspicuity of bilateral patchy opacities, most prominent in the right upper and lower lung mcnair as well as in the lateral aspect of the left upper lobe.
--- NOTE | 2017-08-24 09:23 | CP.PCM.PN ---
Subjective - Date & Time of Evaluation Date of Evaluation: 08/24/17 Time of Evaluation: 09:21 - Subjective Subjective: The patient is having episode of shortness of breath last night. The patient also was agitated, confused. He was placed on BiPAP last night. Chest x-ray last night showing evidence of increasing pulmonary congestion. Patient was seen by carpet yarn winder operator. Mild elevation of the cardiac enzymes noted. Objective - Vital Signs/Intake and Output Vital Signs (last 24 hours): Temp Pulse Resp BP Pulse Ox 98.2 F 98 H 18 106/68 97 08/24/17 07:45 08/24/17 07:55 08/24/17 07:45 08/24/17 07:45 08/24/17 07:45 Intake and Output: 08/24/17 08/24/17 06:59 18:59 Intake Total 80 Output Total 200 Balance -120 This morning patient was eating, on nasal cannula. Patient has a significant dry mouth. He is moving all 4 extremities. Still having confusion. No chest pain. Breathing is slightly better. Chest bilateral wheezing noted, regular heart sound, nontender abdomen, no pedal edema. - Medications Medications: Current Medications Acetaminophen (Tylenol 325mg Tab) 650 mg PO Q6 PRN PRN Reason: Pain, Mild (1-3) Last Admin: 08/22/17 21:48 Dose: 650 mg Aspirin (Aspirin) 325 mg PO DAILY [facility] Last Admin: 08/23/17 09:16 Dose: 325 mg Bacitracin (Bacitracin) 1 ea TOP DAILY [facility] Last Admin: 08/23/17 09:32 Dose: 1 ea Enalapril Maleate (Vasotec) 2.5 mg PO DAILY [facility] Last Admin: 08/23/17 11:31 Dose: Not Given Famotidine (Pepcid) 20 mg PO DAILY [facility] Last Admin: 08/23/17 09:16 Dose: 20 mg Furosemide (Lasix) 40 mg PO DAILY [facility] Heparin Sodium (Porcine) (Heparin) 5,000 units SC Q8 [facility] Last Admin: 08/24/17 06:27 Dose: 5,000 units Ceftriaxone Sodium (Rocephin Iv 1 Gm Duplex) 50 mls @ 100 mls/hr IVPB 0300, 1500 [facility] Last Admin: 08/24/17 03:56 Dose: 100 mls/hr Metoprolol Tartrate (Lopressor) 25 mg PO BID [facility] Last Admin: 08/23/17 18:47 Dose: 25 mg Rosuvastatin Calcium (Crestor) 5 mg PO HS [facility] Last Admin: 08/23/17 22:00 Dose: Not Given Spironolactone (Aldactone) 25 mg PO DAILY [facility] Last Admin: 08/23/17 11:57 Dose: 25 mg - Labs Labs: 08/22/17 07:24 08/22/17 07:24 PT 11.2 SECONDS (9.7-12.2) 08/22/17 07:24 INR 1.0 08/22/17 07:24 APTT 36 SECONDS (21-34) H D 08/23/17 06:06 - Additional Findings Additional findings: Echocardiogram showing evidence of a low ejection fraction, associated pulmonary hypertension Assessment and Plan (1) CHF exacerbation Assessment & Plan: Patient with a possible systolic heart failure. Mild positive troponin. Decompensated heart failure at this time, needing BiPAP and oxygen. Continue the Lasix gently. Cardiology evaluation followup. Will discuss with the carpet yarn winder operator. Close monitoring. Status: Acute (2) Acute ischemic heart disease Status: Acute (3) Urinary tract infection Status: Acute (4) Fall Status: Acute (5) Non-ST elevation (NSTEMI) myocardial infarction Status: Acute
[2017-08-24] MEDS ORDERED: Influenza Vaccine 60 mcg/0.5 mL SYR (4YR UP) IM ONE (10:00)
[2017-08-24 10:25] LABS: BASO # 0.1 K/uL (0.0-0.2); BASO % 0.8 % (0.0-2.0); EOS % 0.3 % (0.0-4.0); HEMATOCRIT 42.6 % (35.0-51.0); MEAN CELL VOLUME 95.2 fL (80.0-94.0); MEAN CORPUSCULAR HEMOGLOBIN 31.7 pg (27.0-31.0); MEAN CORPUSCULAR HGB CONC 33.3 g/dL (33.0-37.0); MEAN PLATELET VOLUME 9.3 fL (7.2-11.7); MONO # 0.8 K/uL (0.0-0.8); MONO % 7.9 % (0.0-10.0); RED CELL DISTRIBUTION WIDTH 15.4 % (11.5-14.5); WHITE BLOOD COUNT 10.3 K/uL (4.8-10.8)
[2017-08-24 10:27] LABS: ALB/GLOB RATIO 0.9 (1.0-2.1); ALKALINE PHOSPHATASE 68 U/L (38-126); ALT/SGPT 39 U/L (21-72); AST/SGOT 20 U/L (17-59); BILIRUBIN,TOTAL 0.5 mg/dL (0.2-1.3); BLOOD UREA NITROGEN 28 mg/dL (9-20); CALCIUM 8.3 mg/dl (8.6-10.4); CARBON DIOXIDE 26 mmol/L (22-30); CHLORIDE 102 mmol/L (98-107); GFR AFRICAN-AMERICAN > 60; GLUCOSE,RANDOM 111 mg/dL (75-110); POTASSIUM 3.6 mmol/L (3.6-5.2); SODIUM 139 mmol/L (132-148); TOTAL PROTEIN 7.2 g/dL (6.3-8.3)
[2017-08-24] MEDS: Bacitracin 500 Units/gm Oint Foilpak UD TOP SCH (11:05)
--- NOTE | 2017-08-24 18:11 | CP.PCM.PN ---
Subjective - Date & Time of Evaluation Date of Evaluation: 08/24/17 Time of Evaluation: 18:05 - Subjective Subjective: the patient had a rapid response, needed bipap, feels better. now. echo confirms severe LV dysfunction, severe MR and elevated LA pressure. pt is awake and alert, wants to go home. Objective - Vital Signs/Intake and Output Vital Signs (last 24 hours): Temp Pulse Resp BP Pulse Ox 98.1 F 82 20 95/59 L 95 08/24/17 15:12 08/24/17 15:12 08/24/17 15:12 08/24/17 17:44 08/24/17 15:12 Intake and Output: 08/24/17 08/24/17 06:59 18:59 Intake Total 80 400 Output Total 200 Balance -120 400 - Medications Medications: Current Medications Acetaminophen (Tylenol 325mg Tab) 650 mg PO Q6 PRN PRN Reason: Pain, Mild (1-3) Last Admin: 08/22/17 21:48 Dose: 650 mg Aspirin (Aspirin) 325 mg PO DAILY [facility] Last Admin: 08/24/17 11:05 Dose: 325 mg Bacitracin (Bacitracin) 1 ea TOP DAILY [facility] Last Admin: 08/24/17 11:05 Dose: 1 ea Enalapril Maleate (Vasotec) 2.5 mg PO DAILY [facility] Last Admin: 08/24/17 11:05 Dose: 2.5 mg Famotidine (Pepcid) 20 mg PO DAILY [facility] Last Admin: 08/24/17 11:05 Dose: 20 mg Furosemide (Lasix) 40 mg PO DAILY [facility] Last Admin: 08/24/17 12:44 Dose: Not Given Heparin Sodium (Porcine) (Heparin) 5,000 units SC Q8 [facility] Last Admin: 08/24/17 14:23 Dose: 5,000 units Ceftriaxone Sodium (Rocephin Iv 1 Gm Duplex) 50 mls @ 100 mls/hr IVPB 0300, 1500 [facility] Last Admin: 08/24/17 14:23 Dose: 100 mls/hr Metoprolol Tartrate (Lopressor) 25 mg PO BID [facility] Last Admin: 08/24/17 17:44 Dose: Not Given Rosuvastatin Calcium (Crestor) 5 mg PO HS [facility] Last Admin: 08/23/17 22:00 Dose: Not Given Spironolactone (Aldactone) 25 mg PO DAILY [facility] Last Admin: 08/24/17 11:05 Dose: 25 mg - Labs Labs: 08/24/17 10:10 08/24/17 10:10 PT 11.2 SECONDS (9.7-12.2) 08/22/17 07:24 INR 1.0 08/22/17 07:24 APTT 36 SECONDS (21-34) H D 08/23/17 06:06 - Constitutional Appears: Cachectic, Chronically Ill - Head Exam Head Exam: ATRAUMATIC - Eye Exam Eye Exam: EOMI Pupil Exam: NORMAL ACCOMODATION - ENT Exam ENT Exam: Mucous Membranes Dry - Respiratory Exam Respiratory Exam: Rales (right more than left) - Cardiovascular Exam Cardiovascular Exam: REGULAR RHYTHM - GI/Abdominal Exam GI & Abdominal Exam: Normal Bowel Sounds - Extremities Exam Extremities Exam: Full ROM, Normal Inspection - Back Exam Back Exam: NORMAL INSPECTION - Neurological Exam Neurological Exam: Alert, Awake, Oriented x3 Assessment and Plan - Assessment and Plan (Free Text) Assessment: 1. The patient has stage 4 chf, and prognosis is very poor. Comfor care is advised. Consider hospice. 2. pt 's expectations are not realistic, and he expects to go home. CHF will likely be refractory. 3. Pt has had a few runs of non sustained VT: will check mag level. he is prescribed a beta olimpia. He has an ICD. 4. The ICD was checked and is working well. 5. Will give a run of natrecor, for two days, this should mobilize fluid and give patient some time, hopefully allow for discharge.
[2017-08-24] MEDS: WATER IV SCH (19:37)
[2017-08-24] MEDS: DEXTROSE 5% IV SCH (19:37)
[2017-08-24] MEDS: [UNRECOGNIZED DRUG - OTHER] IV SCH (19:37)
[2017-08-25] MEDS: cefTRIAXone IV 1 gm in Dextros 50 ML IVPB SCH ×2 (02:11→14:42)
[2017-08-25] MEDS: Bacitracin 500 Units/gm Oint Foilpak UD TOP SCH (10:11)
--- NOTE | 2017-08-25 18:04 | CP.PCM.PN ---
Subjective - Date & Time of Evaluation Date of Evaluation: 08/25/17 Time of Evaluation: 18:00 - Subjective Subjective: The pt is demanding to go home. Aide says that he made urin today. No report of dyspnea, he is lying recumbent without dificulty. Objective - Vital Signs/Intake and Output Vital Signs (last 24 hours): Temp Pulse Resp BP Pulse Ox 97.9 F 98 H 20 97/56 L 98 08/25/17 16:44 08/25/17 17:31 08/25/17 17:31 08/25/17 17:31 08/25/17 17:31 Intake and Output: 08/25/17 08/25/17 06:59 18:59 Intake Total 234 Balance 234 - Medications Medications: Current Medications Acetaminophen (Tylenol 325mg Tab) 650 mg PO Q6 PRN PRN Reason: Pain, Mild (1-3) Last Admin: 08/22/17 21:48 Dose: 650 mg Aspirin (Ecotrin) 81 mg PO DAILY [facility] Last Admin: 08/25/17 10:11 Dose: 81 mg Bacitracin (Bacitracin) 1 ea TOP DAILY [facility] Last Admin: 08/25/17 10:11 Dose: 1 ea Enalapril Maleate (Vasotec) 2.5 mg PO DAILY [facility] Last Admin: 08/25/17 10:14 Dose: 2.5 mg Famotidine (Pepcid) 20 mg PO DAILY [facility] Last Admin: 08/25/17 10:11 Dose: 20 mg Furosemide (Lasix) 40 mg PO DAILY [facility] Last Admin: 08/25/17 10:14 Dose: 40 mg Heparin Sodium (Porcine) (Heparin) 5,000 units SC Q8 [facility] Last Admin: 08/25/17 14:41 Dose: 5,000 units Ceftriaxone Sodium (Rocephin Iv 1 Gm Duplex) 50 mls @ 100 mls/hr IVPB 0300, 1500 [facility] Last Admin: 08/25/17 14:42 Dose: 100 mls/hr Nesiritide 1.5 mg/ Dextrose 250 mls @ 8.02 mls/hr IV .Q24H [facility]; 0.01 MCG/KG/MIN PRN Reason: Protocol Last Admin: 08/24/17 19:37 Dose: 0.01 mcg/kg/min, 8.02 mls/hr Metoprolol Tartrate (Lopressor) 25 mg PO BID [facility] Last Admin: 08/25/17 10:14 Dose: 25 mg Rosuvastatin Calcium (Crestor) 5 mg PO HS [facility] Last Admin: 08/24/17 21:44 Dose: 5 mg Spironolactone (Aldactone) 25 mg PO DAILY [facility] Last Admin: 08/25/17 10:14 Dose: 25 mg - Labs Labs: 08/24/17 10:10 08/24/17 10:10 PT 11.2 SECONDS (9.7-12.2) 08/22/17 07:24 INR 1.0 08/22/17 07:24 APTT 36 SECONDS (21-34) H D 08/23/17 06:06 - Constitutional Appears: Cachectic, Chronically Ill - Head Exam Head Exam: ATRAUMATIC - Eye Exam Eye Exam: EOMI - ENT Exam ENT Exam: Mucous Membranes Dry - Respiratory Exam Respiratory Exam: Rales - Cardiovascular Exam Cardiovascular Exam: REGULAR RHYTHM - GI/Abdominal Exam GI & Abdominal Exam: Normal Bowel Sounds - Back Exam Back Exam: NORMAL INSPECTION - Neurological Exam Neurological Exam: Alert, Awake, CN II-XII Intact - Psychiatric Exam Psychiatric exam: Anxious, Depressed - Skin Skin Exam: Normal Color Assessment and Plan - Assessment and Plan (Free Text) Assessment: 1. Pt's lung sound better, although there are still rales. he is on appropirate meds for chf, and his blood pressure is holding with natrecor. 2. i advised the patient that he still has wet lungs, and that returning home is not irvin, and that he might . he does not care, and wants to go home regardless of whether he has lung congestion or not. therefore, i will d/d natrecor in the Am and patient can sign himself out.
[2017-08-25] MEDS: DEXTROSE 5% IV SCH (21:00)
[2017-08-25] MEDS: WATER IV SCH (21:00)
[2017-08-25] MEDS: [UNRECOGNIZED DRUG - OTHER] IV SCH (21:00)
--- NOTE | 2017-08-25 23:52 | CP.PCM.PN ---
Subjective - Date & Time of Evaluation Date of Evaluation: 08/25/17 Objective - Vital Signs/Intake and Output Vital Signs (last 24 hours): Temp Pulse Resp BP Pulse Ox 98.7 F 119 H 20 110/69 97 08/25/17 21:30 08/25/17 21:30 08/25/17 21:30 08/25/17 21:30 08/25/17 21:30 Intake and Output: 08/25/17 08/26/17 18:59 06:59 Intake Total 250 Balance 250 - Medications Medications: Current Medications Acetaminophen (Tylenol 325mg Tab) 650 mg PO Q6 PRN PRN Reason: Pain, Mild (1-3) Last Admin: 08/22/17 21:48 Dose: 650 mg Aspirin (Ecotrin) 81 mg PO DAILY [facility] Last Admin: 08/25/17 10:11 Dose: 81 mg Bacitracin (Bacitracin) 1 ea TOP DAILY [facility] Last Admin: 08/25/17 10:11 Dose: 1 ea Enalapril Maleate (Vasotec) 2.5 mg PO DAILY [facility] Last Admin: 08/25/17 10:14 Dose: 2.5 mg Famotidine (Pepcid) 20 mg PO DAILY [facility] Last Admin: 08/25/17 10:11 Dose: 20 mg Furosemide (Lasix) 40 mg PO DAILY [facility] Last Admin: 08/25/17 10:14 Dose: 40 mg Heparin Sodium (Porcine) (Heparin) 5,000 units SC Q8 [facility] Last Admin: 08/25/17 22:50 Dose: Not Given Nesiritide 1.5 mg/ Dextrose 250 mls @ 8.02 mls/hr IV .Q24H [facility]; 0.01 MCG/KG/MIN PRN Reason: Protocol Stop: 08/26/17 09:00 Last Admin: 08/25/17 21:00 Dose: 0.01 mcg/kg/min, 8.02 mls/hr Ceftriaxone Sodium 1 gm/ (Dextrose) 50 mls @ 100 mls/hr IVPB 0300,1500 [facility] Metoprolol Tartrate (Lopressor) 25 mg PO BID [facility] Last Admin: 08/25/17 19:38 Dose: Not Given Mirtazapine (Remeron) 7.5 mg PO HS [facility] Last Admin: 08/25/17 22:49 Dose: 7.5 mg Quetiapine Fumarate (Seroquel) 25 mg PO DAILY [facility] Rosuvastatin Calcium (Crestor) 5 mg PO HS [facility] Last Admin: 08/25/17 22:49 Dose: 5 mg Spironolactone (Aldactone) 25 mg PO DAILY [facility] Last Admin: 08/25/17 10:14 Dose: 25 mg - Labs Labs: 08/24/17 10:10 08/24/17 10:10 PT 11.2 SECONDS (9.7-12.2) 08/22/17 07:24 INR 1.0 08/22/17 07:24 APTT 36 SECONDS (21-34) H D 08/23/17 06:06 Assessment and Plan (1) CHF exacerbation Status: Acute (2) Acute ischemic heart disease Status: Acute (3) Urinary tract infection Status: Acute (4) Fall Status: Acute (5) Non-ST elevation (NSTEMI) myocardial infarction Status: Acute
[2017-08-26 07:33] LABS: HEMATOCRIT 45.8 % (35.0-51.0); MEAN CELL VOLUME 94.6 fL (80.0-94.0); MEAN CORPUSCULAR HEMOGLOBIN 31.7 pg (27.0-31.0); MEAN CORPUSCULAR HGB CONC 33.5 g/dL (33.0-37.0); MEAN PLATELET VOLUME 9.2 fL (7.2-11.7); RED CELL DISTRIBUTION WIDTH 14.7 % (11.5-14.5); WHITE BLOOD COUNT 8.3 K/uL (4.8-10.8)
[2017-08-26 08:43] LABS: ALB/GLOB RATIO 1.1 (1.0-2.1); ALKALINE PHOSPHATASE 73 U/L (38-126); ALT/SGPT 32 U/L (21-72); AST/SGOT 31 U/L (17-59); BILIRUBIN,TOTAL 1.1 mg/dL (0.2-1.3); BLOOD UREA NITROGEN 29 mg/dL (9-20); CALCIUM 8.6 mg/dl (8.6-10.4); CARBON DIOXIDE 26 mmol/L (22-30); CHLORIDE 102 mmol/L (98-107); GFR AFRICAN-AMERICAN > 60; GLUCOSE,RANDOM 84 mg/dL (75-110); POTASSIUM 3.7 mmol/L (3.6-5.2); SODIUM 142 mmol/L (132-148); TOTAL PROTEIN 7.1 g/dL (6.3-8.3)
[2017-08-26] MEDS: Bacitracin 500 Units/gm Oint Foilpak UD TOP SCH (10:11)
--- NOTE | 2017-08-26 19:21 | CP.PCM.PN ---
Subjective - Date & Time of Evaluation Date of Evaluation: 08/26/17 Time of Evaluation: 19:18 - Subjective Subjective: The pt was asleep, groggy, arousable. Objective - Vital Signs/Intake and Output Vital Signs (last 24 hours): Temp Pulse Resp BP Pulse Ox 98.0 F 101 H 18 99/60 L 95 08/26/17 15:49 08/26/17 15:49 08/26/17 15:49 08/26/17 15:49 08/26/17 15:49 Intake and Output: 08/26/17 08/27/17 18:59 06:59 Intake Total 130 Balance 130 - Medications Medications: Current Medications Acetaminophen (Tylenol 325mg Tab) 650 mg PO Q6 PRN PRN Reason: Pain, Mild (1-3) Last Admin: 08/22/17 21:48 Dose: 650 mg Aspirin (Ecotrin) 81 mg PO DAILY [facility] Last Admin: 08/26/17 10:10 Dose: 81 mg Bacitracin (Bacitracin) 1 ea TOP DAILY [facility] Last Admin: 08/26/17 10:11 Dose: 1 ea Enalapril Maleate (Vasotec) 2.5 mg PO DAILY [facility] Last Admin: 08/26/17 10:10 Dose: Not Given Famotidine (Pepcid) 20 mg PO DAILY [facility] Last Admin: 08/26/17 10:10 Dose: 20 mg Furosemide (Lasix) 40 mg PO DAILY [facility] Last Admin: 08/26/17 10:10 Dose: Not Given Heparin Sodium (Porcine) (Heparin) 5,000 units SC Q8 [facility] Last Admin: 08/26/17 14:15 Dose: 5,000 units Ceftriaxone Sodium 1 gm/ (Dextrose) 50 mls @ 100 mls/hr IVPB 0300,1500 [facility] Last Admin: 08/26/17 15:16 Dose: 100 mls/hr Metoprolol Tartrate (Lopressor) 25 mg PO BID [facility] Last Admin: 08/26/17 18:16 Dose: Not Given Mirtazapine (Remeron) 7.5 mg PO HS [facility] Last Admin: 08/25/17 22:49 Dose: 7.5 mg Quetiapine Fumarate (Seroquel) 25 mg PO DAILY [facility] Last Admin: 08/26/17 10:10 Dose: 25 mg Rosuvastatin Calcium (Crestor) 5 mg PO HS [facility] Last Admin: 08/25/17 22:49 Dose: 5 mg Spironolactone (Aldactone) 25 mg PO DAILY [facility] Last Admin: 08/26/17 10:10 Dose: Not Given - Labs Labs: 08/26/17 07:07 08/26/17 07:07 PT 11.2 SECONDS (9.7-12.2) 08/22/17 07:24 INR 1.0 08/22/17 07:24 APTT 36 SECONDS (21-34) H D 08/23/17 06:06 - Constitutional Appears: Cachectic, Chronically Ill - Head Exam Head Exam: ATRAUMATIC - ENT Exam ENT Exam: Mucous Membranes Moist - Neck Exam Neck Exam: Normal Inspection - Respiratory Exam Respiratory Exam: Rales - GI/Abdominal Exam GI & Abdominal Exam: Normal Bowel Sounds - Rectal Exam Rectal Exam: NORMAL INSPECTION - Extremities Exam Extremities Exam: Normal Inspection - Back Exam Back Exam: NORMAL INSPECTION - Skin Skin Exam: Normal Color Assessment and Plan - Assessment and Plan (Free Text) Assessment: 1. Severe ischemic caridomyopathy, with acute on chronic systolic heart failure. BP was too low today to give CV meds. Pt's mental status is worse. Prognosis is very poor, and pt should consider hospice.
[2017-08-27] MEDS: Bacitracin 500 Units/gm Oint Foilpak UD TOP SCH (09:31)
[2017-08-28] MEDS: Bacitracin 500 Units/gm Oint Foilpak UD TOP SCH (12:43)
--- NOTE | 2017-08-28 18:01 | CP.PCM.PN ---
Subjective - Date & Time of Evaluation Date of Evaluation: 08/28/17 Time of Evaluation: 18:01 Objective - Vital Signs/Intake and Output Vital Signs (last 24 hours): Temp Pulse Resp BP Pulse Ox 98.3 F 81 20 96/61 L 96 08/28/17 17:42 08/28/17 17:42 08/28/17 17:42 08/28/17 17:42 08/28/17 17:42 - Medications Medications: Current Medications Acetaminophen (Tylenol 325mg Tab) 650 mg PO Q6 PRN PRN Reason: Pain, Mild (1-3) Last Admin: 08/22/17 21:48 Dose: 650 mg Aspirin (Ecotrin) 81 mg PO DAILY [facility] Last Admin: 08/28/17 12:43 Dose: 81 mg Bacitracin (Bacitracin) 1 ea TOP DAILY [facility] Last Admin: 08/28/17 12:43 Dose: 1 ea Enalapril Maleate (Vasotec) 2.5 mg PO DAILY [facility] Last Admin: 08/28/17 12:44 Dose: 2.5 mg Famotidine (Pepcid) 20 mg PO DAILY [facility] Last Admin: 08/28/17 12:44 Dose: 20 mg Furosemide (Lasix) 40 mg PO DAILY [facility] Last Admin: 08/28/17 12:46 Dose: 40 mg Heparin Sodium (Porcine) (Heparin) 5,000 units SC Q8 [facility] Last Admin: 08/28/17 13:44 Dose: 5,000 units Ceftriaxone Sodium 1 gm/ (Sodium Chloride) 100 mls @ 100 mls/hr IVPB 0300,1500 [facility] Metoprolol Tartrate (Lopressor) 25 mg PO BID [facility] Last Admin: 08/28/17 12:47 Dose: 25 mg Mirtazapine (Remeron) 7.5 mg PO HS [facility] Last Admin: 08/27/17 21:57 Dose: 7.5 mg Quetiapine Fumarate (Seroquel) 25 mg PO DAILY [facility] Last Admin: 08/28/17 12:47 Dose: 25 mg Rosuvastatin Calcium (Crestor) 5 mg PO HS [facility] Last Admin: 08/27/17 21:57 Dose: 5 mg Spironolactone (Aldactone) 25 mg PO DAILY [facility] Last Admin: 08/28/17 12:43 Dose: 25 mg - Labs Labs: 08/26/17 07:07 08/26/17 07:07 PT 11.2 SECONDS (9.7-12.2) 08/22/17 07:24 INR 1.0 08/22/17 07:24 APTT 36 SECONDS (21-34) H D 08/23/17 06:06 Assessment and Plan (1) CHF exacerbation Status: Acute (2) Acute ischemic heart disease Status: Acute (3) Urinary tract infection Status: Acute (4) Fall Status: Acute (5) Non-ST elevation (NSTEMI) myocardial infarction Status: Acute
[2017-08-29] MEDS: Bacitracin 500 Units/gm Oint Foilpak UD TOP SCH (10:01)
[2017-08-30] MEDS: Bacitracin 500 Units/gm Oint Foilpak UD TOP SCH (10:24)
--- NOTE | 2017-08-30 15:33 | CP.PCM.PN ---
Subjective - Date & Time of Evaluation Date of Evaluation: 08/30/17 Time of Evaluation: 15:29 - Subjective Subjective: PT CLEARED FOR D/C HOME TODAY PER DR. STEPHENSON WITH HOME HOSPICE WITH [facility]. ALL HOME HOSPICE ARRANGEMENTS MADE ON 08/27/17, WITH PT, , AND W[place]ATT FROM [facility]. CUT ORDER HAND AND WYATT SPOKE WITH PT'S NEIGHBOR, JANNETTE PERDOMO, WHO HELPS THE COUPLE WHEN NEEDED TO VERIFY THAT THERE IS A TODDLER GUIDE FOR EMERGENCIES. PT HAS BEEN RX ALL MEDS AND CUT ORDER HAND REQUESTED MEDS TO BED PRIOR TO D/C. SW ARRANGED TRANSPORTATION HOME THIS AFTERNOON. PT' S VERBALIZED UNDERSTANDING OF D/C PLAN, MEDS, AND F/U INFO. HOME O2 DELIVERED TO THE HOME TODAY; PT AND REFUSED HOSPITAL BED AT THIS TIME. NO FURTHER ORDERS. Objective - Vital Signs/Intake and Output Vital Signs (last 24 hours): Temp Pulse Resp BP Pulse Ox 97 F L 88 20 95/64 L 97 08/30/17 08:05 08/30/17 13:50 08/30/17 08:15 08/30/17 10:38 08/30/17 08:05 Intake and Output: 08/30/17 08/30/17 06:59 18:59 Intake Total 220 460 Output Total 0 Balance 220 460 - Medications Medications: Current Medications Acetaminophen (Tylenol 325mg Tab) 650 mg PO Q6 PRN PRN Reason: Pain, Mild (1-3) Last Admin: 08/22/17 21:48 Dose: 650 mg Aspirin (Ecotrin) 81 mg PO DAILY [facility] Last Admin: 08/30/17 10:24 Dose: 81 mg Bacitracin (Bacitracin) 1 ea TOP DAILY [facility] Last Admin: 08/30/17 10:24 Dose: 1 ea Enalapril Maleate (Vasotec) 2.5 mg PO DAILY [facility] Last Admin: 08/30/17 10:38 Dose: Not Given Famotidine (Pepcid) 20 mg PO DAILY [facility] Last Admin: 08/30/17 10:24 Dose: 20 mg Furosemide (Lasix) 40 mg PO DAILY [facility] Last Admin: 08/30/17 10:38 Dose: Not Given Ceftriaxone Sodium 1 gm/ (Sodium Chloride) 100 mls @ 100 mls/hr IVPB 0300,1500 [facility] Last Admin: 08/30/17 14:31 Dose: 100 mls/hr Metoprolol Tartrate (Lopressor) 25 mg PO BID [facility] Last Admin: 08/30/17 10:38 Dose: Not Given Mirtazapine (Remeron) 7.5 mg PO HS [facility] Last Admin: 08/29/17 22:02 Dose: 7.5 mg Quetiapine Fumarate (Seroquel) 25 mg PO DAILY [facility] Last Admin: 08/30/17 10:24 Dose: 25 mg Rosuvastatin Calcium (Crestor) 5 mg PO HS [facility] Last Admin: 08/29/17 22:02 Dose: 5 mg Spironolactone (Aldactone) 25 mg PO DAILY [facility] Last Admin: 08/30/17 10:37 Dose: Not Given - Labs Labs: 08/26/17 07:07 08/26/17 07:07 PT 11.2 SECONDS (9.7-12.2) 08/22/17 07:24 INR 1.0 08/22/17 07:24 APTT 36 SECONDS (21-34) H D 08/23/17 06:06
[2017-08-30 17:14] VITALS: BP 105/67; PULSE 63; RESP 16; TEMP 98.5; O2SAT 99
--- NOTE | 2017-08-31 10:33 | PCM.HF ---
Heart Failure Core Measure - Heart Failure Ejection Fraction: Less Than 40 % JUVENCIO Inhibitor Prescribed: Yes Beta-Gee Prescribed: None Contraindication/Reason for not providing: LOPRESSOR 25 MG PO BID Angiotensin II Receptor Gee Prescribed: No Contraindication/Reason for not providing: ON ARB AnticoagulationTherapy for Atrial Fibrillation/Atrialflutter: No Contraindication/Reason for not providing: NO AFIB Aldosterone Antagonist Prescribed: No Contraindication/Reason for not providing: D/C ON HOME HOSPICE; POOR PROGNOSIS PER CARDIO Hydralazine Nitrate Prescribed: No Contraindication/Reason for not providing: D/C ON HOME HOSPICE; POOR PROGNOSIS PER CARDIO Implantable Cardioverter Defibrillator Therapy: Yes Contraindication/Reason for not providing: HAS PPM Cardiac Resynchronization Therapy Prescribed: No Contraindication/Reason for not providing: HAS PPM - Follow up Will be discharged to: Home (HOME WITH [facility]) Follow Up Date (must be within 7 days from discharge): 09/03/17 Follow Up Time: 09:00
--- NOTE | 2017-08-31 23:54 | CARD ---
APPROVED REPORT EKG Measurement Heart [id number] <Conclusion> Normal sinus rhythm Left ventricular hypertrophy with repolarization abnormality Prolonged QT Abnormal ECG
--- NOTE | 2017-08-31 23:54 | CARD ---
APPROVED REPORT EKG Measurement Heart [id number] [id number] <Conclusion> Sinus rhythm with occasional premature ventricular complexes and premature atrial complexes ST & Marked T wave abnormality, consider anterolateral ischemia Prolonged QT Abnormal ECG
== END 2017-08-30 17:42 | disposition home or self-care (01) | DRG 280 ==
LOC: C.ER 06:49 → C.9E 09:29 → C.6T 11:25
PROVIDERS: ADMIT Internal Medicine; ATTEND Internal Medicine
PROC: 5A09557 Assistance with Respiratory Ventilation, Greater than 96 Consecutive Hours, Continuous Positive Airway Pressure (ICD-10-PCS; principal; 2017-08-23)
DX: I13.0 Hypertensive heart and chronic kidney disease with heart failure and stage 1 through stage 4 chronic kidney disease, or unspecified chronic kidney disease (principal); I50.23 Acute on chronic systolic (congestive) heart failure; I21.4 Non-ST elevation (NSTEMI) myocardial infarction; I47.2 Ventricular tachycardia; N39.0 Urinary tract infection, site not specified; I25.5 Ischemic cardiomyopathy; I25.10 Atherosclerotic heart disease of native coronary artery without angina pectoris; G62.9 Polyneuropathy, unspecified; F03.90 Unspecified dementia, unspecified severity, without behavioral disturbance, psychotic disturbance, mood disturbance, and anxiety; N18.9 Chronic kidney disease, unspecified; Z95.0 Presence of cardiac pacemaker; C44.90 Unspecified malignant neoplasm of skin, unspecified; R29.6 Repeated falls; Z85.46 Personal history of malignant neoplasm of prostate

== ENCOUNTER 2017-10-08 10:09 | Inpatient (IN) | payer MEDICARE ==
[2017-10-08 10:51] LABS: BASO # 0.1 K/uL (0.0-0.2); BASO % 0.5 % (0.0-2.0); EOS % 0.1 % (0.0-4.0); HEMOGLOBIN 13.7 g/dL (12.0-18.0); LYMPH % 7.7 % (20.0-40.0); MEAN CELL VOLUME 92.6 fL (80.0-94.0); MEAN CORPUSCULAR HEMOGLOBIN 31.5 pg (27.0-31.0); NEUT # 10.7 K/uL (1.8-7.0); NEUT % 83.7 % (50.0-75.0); PLATELET COUNT 297 K/uL (130-400); RBC 4.35 Mil/uL (4.40-5.90); RED CELL DISTRIBUTION WIDTH 15.2 % (11.5-14.5); WHITE BLOOD COUNT 12.8 K/uL (4.8-10.8)
[2017-10-08 10:59] LABS: INR 1.1; PROTHROMBIN TIME 12.7 SECONDS (9.7-12.2)
--- NOTE | 2017-10-08 11:06 | C.PDOC ---
History Of Present Illness 87 year old male, with PMHx of CHF, presents to ED for evaluation of low back pain, chest pain, and left shoulder pain for the past few days. Pt states he fell 2 weeks ago. Pt is on hospice as per previous record. Denies fever, shortness of breath, or other complaints. Time Seen by Provider: 10/08/17 10:19 Chief Complaint (Nursing): Weakness/Neurological Deficit History Per: Patient History/Exam Limitations: no limitations Onset/Duration Of Symptoms: Days Current Symptoms Are (Timing): Still Present Past Medical History Reviewed: Historical Data, Nursing Documentation, Vital Signs Vital Signs: Last Vital Signs Temp 97.5 F L 10/10/17 07:05 Pulse 104 H 10/10/17 07:05 Resp 18 10/10/17 07:05 BP 109/67 10/10/17 09:06 Pulse Ox 99 10/10/17 07:05 - Medical History PMH: CHF, HTN, Kidney Stones, Malignancy (SKIN), Chronic Kidney Disease Surgical History: Pacemaker - [facility] Procedures ASSISTANCE WITH RESPIRATORY VENTILATION, >96 HRS, CPAP (08/22/17) VACCINATION NEC (10/04/13) Family History: States: Unknown Family Hx - Social History Hx Tobacco Use: No Hx Alcohol Use: No Hx Substance Use: No - Immunization History Hx Tetanus Toxoid Vaccination: No Hx Influenza Vaccination: No Hx Pneumococcal Vaccination: No Review Of Systems Except As Marked, All Systems Reviewed And Found Negative. Constitutional: Negative for: Fever, Chills Cardiovascular: Positive for: Chest Pain. Negative for: Palpitations, Light Headedness Respiratory: Negative for: Cough, Shortness of Breath Musculoskeletal: Positive for: Shoulder Pain (left), Back Pain. Negative for: Neck Pain Neurological: Negative for: Weakness, Numbness Physical Exam - Physical Exam Appears: Non-toxic, No Acute Distress Skin: Normal Color, Warm, Dry Head: Atraumatic, Normacephalic Eye(s): bilateral: Normal Inspection Oral Mucosa: Moist Neck: Normal ROM, Supple Chest: Symmetrical, No Tenderness Cardiovascular: Rhythm Regular, No Murmur Respiratory: Normal Breath Sounds, No Rales, No Rhonchi, No Wheezing Gastrointestinal/Abdominal: Soft, No Tenderness Back: No Vertebral Tenderness, Paraspinal Tenderness (paralumbar) Extremity: Normal ROM, Tenderness (left shoulder), No Pedal Edema, Capillary Refill (less than 2 secs.), No Deformity, No Swelling Extremity: Bilateral: Normal Color And Temperature, Normal ROM Pulses: Left Radial: Normal Neurological/Psych: Oriented x3, Normal Speech, Normal Motor, Normal Sensation ED Course And Treatment - Laboratory Results Result Diagrams: 10/10/17 07:30 10/10/17 07:30 ECG: Interpreted By Me, Viewed By Me ECG Rhythm: Sinus Tachycardia ECG Interpretation: No Acute Changes Interpretation Of ECG: T wave inversions. ST depression anteriorly Rate From EC (bpm) O2 Sat by Pulse Oximetry: 97 (RA) Pulse Ox Interpretation: Normal Medical Decision Making Medical Decision Making: Plan: Blood work EKG CXR Left humerus/shoulder x-ray LS spine x-ray after discussion with pt and . , unclear on goals of care. Extensive discussion at bedside, would like to take patient home and continue hospice. However, pt declines, pt appears to be confused. Case discussed with Dr. Shirley who accepts pt for tele admission. ekg with anterior changes. imaging neg as read by me. Disposition - Disposition Disposition: HOSPITALIZED Disposition Time: 13:09 Condition: GUARDED - Clinical Impression Clinical Impression: Fall, CHF exacerbation - Scribe Statement The provider has reviewed the documentation as recorded by the Scribe Oj Domínguez All medical record entries made by the Scribe were at my direction and personally dictated by me. I have reviewed the chart and agree that the record accurately reflects my personal performance of the history, physical exam, medical decision making, and the department course for this patient. I have also personally directed, reviewed, and agree with the discharge instructions and disposition. Decision To Admit - Pt Status Changed To: Hospital Disposition Of: Inpatient - Admit Certification Admit to Inpatient:: After my assessment, the patient will require hospitalization for at least two midnights. This is because of the severity of symptoms shown, intensity of services needed, and/or the medical risk in this patient being treated as an outpatient. - InPatient: Physician Admission Certification: I certify that this patient requires 2 or more midnights of care for the following reason:: needs diuresis - . Bed Request Type: Telemetry Admitting Physician: Anjana Shirley Patient Diagnosis: Fall, CHF exacerbation
[2017-10-08 11:09] LABS: ALBUMIN 3.9 g/dL (3.5-5.0); CALCIUM 8.6 mg/dl (8.6-10.4)
[2017-10-08 11:16] LABS: TROPONIN I 0.021 ng/mL (0.00-0.120)
[2017-10-08 11:32] LABS: LYMPHOCYTE 9 % (20-40); MONOCYTE 5 % (0-10); NEUTROPHIL 86 % (50-75); PLATELET ESTIMATE NORMAL (NORMAL); TOTAL CELLS COUNTED 100
[2017-10-08 11:33] LABS: ANISOCYTOSIS SLIGHT
--- NOTE | 2017-10-08 12:32 | RAD ---
PROCEDURE: CHEST RADIOGRAPH, 1 VIEW HISTORY: chest pain COMPARISON: 06/21/2017. FINDINGS: LUNGS: The lungs are well inflated and clear. There is biapical pleural thickening. PLEURA: No pneumothorax or pleural fluid seen. CARDIOVASCULAR: The heart is normal in size. There is stable position of a left-sided AICD OSSEOUS STRUCTURES: No significant abnormalities. VISUALIZED UPPER ABDOMEN: Normal. OTHER FINDINGS: None. IMPRESSION: No acute findings.
--- NOTE | 2017-10-08 12:33 | RAD ---
PROCEDURE: Radiographs of the left humerus. HISTORY: fall COMPARISON: None. FINDINGS: BONES: Bone alignment and mineralization are normal. No acute fracture or focal lesion. SOFT TISSUES: Normal. OTHER FINDINGS: None. IMPRESSION: No acute fracture or dislocation.
--- NOTE | 2017-10-08 12:38 | RAD ---
PROCEDURE: Radiographs of the Left Shoulder HISTORY: fall COMPARISON: No prior. FINDINGS: BONES: Bone alignment is normal. There is diffuse bone demineralization. There is an irregular lucency in the superior lateral scapula beneath the coracoid process. There is no acute displaced fracture in the humerus. JOINTS: Normal. Glenohumeral and acromioclavicular joints preserved. No osteoarthritis. SOFT TISSUES: Normal. OTHER FINDINGS: None. IMPRESSION: Oblique lucency in the superior scapula could be artifactual or represent an acute nondisplaced fracture in the appropriate clinical setting. If clinically indicated, CT scan may be performed for definitive evaluation.
--- NOTE | 2017-10-08 12:40 | RAD ---
PROCEDURE: Radiographs of the Lumbar Spine. HISTORY: fall COMPARISON: No prior. FINDINGS: BONES: There is a 8 mm degenerative retrolisthesis of L2 on L3. There is no acute or spondylolisthesis. There is diffuse bone demineralization. DISC SPACES: There is severe degenerative disc disease at L2-3 with anterior osteophytes, desiccated vacuum disc and subarticular endplate changes. OTHER FINDINGS: None. IMPRESSION: No acute fracture or spondylolysis. Severe degenerative disc disease at L2-3 with 8 mm degenerative retrolisthesis of L2 on L3.
[2017-10-10 07:41] LABS: MEAN CELL VOLUME 92.6 fL (80.0-94.0); MEAN CORPUSCULAR HEMOGLOBIN 32.6 pg (27.0-31.0); MEAN CORPUSCULAR HGB CONC 35.3 g/dL (33.0-37.0); MEAN PLATELET VOLUME 8.9 fL (7.2-11.7); RBC 4.28 Mil/uL (4.40-5.90); RED CELL DISTRIBUTION WIDTH 15.1 % (11.5-14.5); WHITE BLOOD COUNT 10.2 K/uL (4.8-10.8)
[2017-10-10 08:07] LABS: BLOOD UREA NITROGEN 37 mg/dL (9-20); CALCIUM 8.7 mg/dl (8.6-10.4); GFR AFRICAN-AMERICAN > 60; GFR NON-AFRICAN AMERICAN > 60
[2017-10-11 07:46] LABS: HEMOGLOBIN 13.7 g/dL (12.0-18.0); MEAN CELL VOLUME 92.3 fL (80.0-94.0); MEAN CORPUSCULAR HEMOGLOBIN 31.7 pg (27.0-31.0); MEAN CORPUSCULAR HGB CONC 34.3 g/dL (33.0-37.0); MEAN PLATELET VOLUME 9.1 fL (7.2-11.7); RBC 4.33 Mil/uL (4.40-5.90)
[2017-10-11 08:30] LABS: BLOOD UREA NITROGEN 42 mg/dL (9-20); CALCIUM 8.8 mg/dl (8.6-10.4); GFR AFRICAN-AMERICAN > 60; GFR NON-AFRICAN AMERICAN > 60
--- NOTE | 2017-10-11 10:05 | CARD ---
APPROVED REPORT EKG Measurement Heart [id number] 162P57 [id number] <Conclusion> Sinus tachycardia with Non sustained WCT (most likely VT). Marked ST abnormality, possible Lateral subendocardial injury/ischemia Abnormal ECG
--- NOTE | 2017-10-11 17:13 | CP.PCM.HP ---
History of Present Illness - History of Present Illness History of Present Illness: Chief complaint: generalised pain and fall History of present illness: 87-year-old male with history of congestive heart failure, hypertension, pacemaker placement. he was recently hospitalised with chf and chest pain. admitted with frequent falls and pain over the shoulder and neck pain and weakness According to the , he was having frequent to falls at home. He has some multiple abrasions in the upper extremity, and bleeding skin abrasions noted. Today he was also trying to get up, and unable to stand up and he fell. He claims that he has a severe neuropathy, causing trouble in feeling the right leg, and also frequent falling. During the episode of shortness of breath, he did not have any palpitation or chest pain. No dizziness. No cough, no fever, no nausea, no vomiting. He denies any urinary problems. No diarrhea. He did not have any recent doctor visit, but he is taking the medications at least 5 pills, but the patient is not remembering the medication. Past medical history: CHF, hypertension, renal stones, skin malignancy. Surgical history pacemaker. Patient also had a possibility of right lower abdominal scar appendectomy likely. Family history: None Social history: Remote history of smoking. No alcohol. Immunization history not available Review of systems: Patient is currently no headache. Visual symptoms negative, vision is able to see well. Denies any throat pain. No cough, shortness of breath, wheezing. No chest pain. Denies any abdominal pain, scar noted. Extremities multiple abrasions in the right side of the upper extremities more than the left side. Vital signs reviewed No neck vein distention noted Chest good air entry bilaterally, no wheezing or rales noted CVS regular heart sound, no murmur noted Abdomen soft, nontender. Scar noted Extremities no pedal edema Patient has multiple abrasions mainly involving the right upper extremity [employer]OR [employer] STUD[employer] alert awake oriented -3, no functional neurological deficit Patient's labs reviewed EKG showing inferior leads and lateral leads ischemic changes noted. The T-wave inversion. Chest x-ray showing diffuse acute changes, likely CHF pattern. 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 Present on Admission - Present on Admission Any Indicators Present on Admission: No History of DVT/PE: No History of Uncontrolled Diabetes: No Urinary Catheter: No Decubitus Ulcer Present: No Past Patient History - Infectious Disease Hx of Infectious Diseases: None - Past Medical History & Family History Past Medical History?: Yes - Past Social History Smoking Status: Never Smoked - CARDIAC Hx Congestive Heart Failure: Yes Hx Hypertension: Yes - PULMONARY Hx Respiratory Disorders: No - NEUROLOGICAL Hx Neurological Disorder: No - HEENT Hx HEENT Problems: No - RENAL Hx Chronic Kidney Disease: Yes Hx Kidney Stones: Yes - ENDOCRINE/METABOLIC Hx Diabetes Mellitus Type 2: Yes - HEMATOLOGICAL/ONCOLOGICAL Hx Blood Disorders: Yes Hx Cancer: Yes (PROSTATE) - INTEGUMENTARY Hx Dermatological Problems: No - MUSCULOSKELETAL/RHEUMATOLOGICAL Hx Musculoskeletal Disorders: No Hx Falls: Yes - GASTROINTESTINAL Hx Gastrointestinal Disorders: No - GENITOURINARY/GYNECOLOGICAL Hx Genitourinary Disorders: Yes Hx Prostate Cancer: Yes - PSYCHIATRIC Hx Substance Use: No - SURGICAL HISTORY Hx Surgeries: No - ANESTHESIA Hx Anesthesia: No Hx Anesthesia Reactions: No Hx Malignant Hyperthermia: No Meds Allergies/Adverse Reactions: Allergies Allergy/AdvReac Type Severity Reaction Status Date / Time No Known Allergies Allergy Unverified 06/21/17 08:10 Results - Vital Signs Recent Vital Signs: Last Vital Signs Temp 97.5 F L 10/11/17 08:26 Pulse 109 H 10/11/17 11:46 Resp 20 10/11/17 08:26 BP 121/73 10/11/17 11:01 Pulse Ox 97 10/11/17 08:26 - Labs Result Diagrams: 10/11/17 07:21 10/11/17 07:21 Labs: Laboratory Results - last 24 hr 10/11/17 10/11/17 10/11/17 07:21 07:21 07:31 WBC 12.0 H RBC 4.33 L Hgb 13.7 Hct 40.0 MCV 92.3 MCH 31.7 H MCHC 34.3 RDW 15.0 H Plt Count 314 MPV 9.1 Sodium 130 L Potassium 4.4 Chloride 97 L Carbon Dioxide 24 Anion Gap 14 BUN 42 H Creatinine 1.1 Est GFR ( Amer) > 60 Est GFR (Non-Af Amer) > 60 POC Glucose (mg/dL) 137 H Random Glucose 105 Calcium 8.8
--- NOTE | 2017-10-11 17:15 | CP.PCM.PN ---
Subjective - Date & Time of Evaluation Date of Evaluation: 10/09/17 Time of Evaluation: 17:13 - Subjective Subjective: pt condition same he want to go home but he is unsafe for going home c/o shoulder pain clinically same unable to stand will need most PT rehab continue current treatment Objective - Vital Signs/Intake and Output Vital Signs (last 24 hours): Temp Pulse Resp BP Pulse Ox 97.5 F L 109 H 20 121/73 97 10/11/17 08:26 10/11/17 11:46 10/11/17 08:26 10/11/17 11:01 10/11/17 08:26 Intake and Output: 10/11/17 10/11/17 06:59 18:59 Intake Total 200 500 Output Total 900 Balance 200 -400 - Medications Medications: Current Medications Acetaminophen (Tylenol 325mg Tab) 650 mg PO Q6H PRN PRN Reason: Pain, Mild (1-3) Last Admin: 10/10/17 00:30 Dose: 650 mg Aspirin (Aspirin) 325 mg PO DAILY [facility] Last Admin: 10/11/17 11:01 Dose: 325 mg Enalapril Maleate (Vasotec) 2.5 mg PO DAILY [facility] Last Admin: 10/11/17 11:01 Dose: 2.5 mg Furosemide (Lasix) 40 mg PO DAILY [facility] Last Admin: 10/11/17 11:01 Dose: 40 mg Metoprolol Tartrate (Lopressor) 25 mg PO BID [facility] Last Admin: 10/11/17 11:00 Dose: 25 mg Mirtazapine (Remeron) 7.5 mg PO HS [facility] Last Admin: 10/10/17 21:56 Dose: 7.5 mg Quetiapine Fumarate (Seroquel) 25 mg PO DAILY [facility] Last Admin: 10/11/17 11:00 Dose: 25 mg Rosuvastatin Calcium (Crestor) 5 mg PO HS [facility] Last Admin: 10/10/17 21:56 Dose: 5 mg Spironolactone (Aldactone) 25 mg PO DAILY [facility] Last Admin: 10/11/17 11:01 Dose: 25 mg - Labs Labs: 10/11/17 07:21 10/11/17 07:21 PT 12.7 SECONDS (9.7-12.2) H 10/08/17 10:45 INR 1.1 10/08/17 10:45 APTT 35 SECONDS (21-34) H 10/08/17 10:45
--- NOTE | 2017-10-11 17:16 | CP.PCM.PN ---
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 Objective - Vital Signs/Intake and Output Vital Signs (last 24 hours): Temp Pulse Resp BP Pulse Ox 97.5 F L 109 H 20 121/73 97 10/11/17 08:26 10/11/17 11:46 10/11/17 08:26 10/11/17 11:01 10/11/17 08:26 Intake and Output: 10/11/17 10/11/17 06:59 18:59 Intake Total 200 500 Output Total 900 Balance 200 -400 - Medications Medications: Current Medications Acetaminophen (Tylenol 325mg Tab) 650 mg PO Q6H PRN PRN Reason: Pain, Mild (1-3) Last Admin: 10/10/17 00:30 Dose: 650 mg Aspirin (Aspirin) 325 mg PO DAILY [facility] Last Admin: 10/11/17 11:01 Dose: 325 mg Enalapril Maleate (Vasotec) 2.5 mg PO DAILY [facility] Last Admin: 10/11/17 11:01 Dose: 2.5 mg Furosemide (Lasix) 40 mg PO DAILY [facility] Last Admin: 10/11/17 11:01 Dose: 40 mg Metoprolol Tartrate (Lopressor) 25 mg PO BID [facility] Last Admin: 10/11/17 11:00 Dose: 25 mg Mirtazapine (Remeron) 7.5 mg PO [facility] Last Admin: 10/10/17 21:56 Dose: 7.5 mg Quetiapine Fumarate (Seroquel) 25 mg PO DAILY [facility] Last Admin: 10/11/17 11:00 Dose: 25 mg Rosuvastatin Calcium (Crestor) 5 mg PO [facility] Last Admin: 10/10/17 21:56 Dose: 5 mg Spironolactone (Aldactone) 25 mg PO DAILY [facility] Last Admin: 10/11/17 11:01 Dose: 25 mg - Labs Labs: 10/11/17 07:21 10/11/17 07:21 PT 12.7 SECONDS (9.7-12.2) H 01/12/18 10:45 INR 1.1 10/08/17 10:45 APTT 35 SECONDS (21-34) H 10/08/17 10:45
[2017-10-12 00:58] LABS: CK-MB 0.89 ng/mL (0.0-3.38); TROPONIN I 0.053 ng/mL (0.00-0.120)
[2017-10-12 07:36] LABS: BASO # 0.1 K/uL (0.0-0.2); BASO % 0.5 % (0.0-2.0); EOS # 0.1 K/uL (0.0-0.7); EOS % 0.6 % (0.0-4.0); HEMOGLOBIN 13.7 g/dL (12.0-18.0); LYMPH # 1.5 K/uL (1.0-4.3); LYMPH % 12.3 % (20.0-40.0); MEAN CORPUSCULAR HGB CONC 34.7 g/dL (33.0-37.0); MEAN PLATELET VOLUME 8.7 fL (7.2-11.7); MONO # 1.2 K/uL (0.0-0.8); MONO % 9.4 % (0.0-10.0); NEUT # 9.6 K/uL (1.8-7.0); NEUT % 77.2 % (50.0-75.0); RBC 4.29 Mil/uL (4.40-5.90); RED CELL DISTRIBUTION WIDTH 15.2 % (11.5-14.5); WHITE BLOOD COUNT 12.5 K/uL (4.8-10.8)
[2017-10-12 07:47] LABS: ALB/GLOB RATIO 0.9 (1.0-2.1); ALBUMIN 3.7 g/dL (3.5-5.0); CALCIUM 8.6 mg/dl (8.6-10.4)
--- NOTE | 2017-10-12 21:52 | CP.PCM.PN ---
Subjective - Date & Time of Evaluation Date of Evaluation: 10/11/17 Time of Evaluation: 21:51 - Subjective Subjective: pt having episodes of v tach seen by cardio in the past no further aggressive treatment possible palliative care suggested by cardio in the past during last admission will continue current treatment Objective - Vital Signs/Intake and Output Vital Signs (last 24 hours): Temp Pulse Resp BP Pulse Ox 97.8 F 112 H 20 81/40 L 97 10/12/17 15:30 10/12/17 18:44 10/12/17 15:30 10/12/17 17:37 10/12/17 15:30 - Medications Medications: Current Medications Acetaminophen (Tylenol 325mg Tab) 650 mg PO Q6H PRN PRN Reason: Pain, Mild (1-3) Last Admin: 10/12/17 21:41 Dose: 650 mg Aspirin (Aspirin) 325 mg PO DAILY [facility] Last Admin: 10/12/17 10:48 Dose: 325 mg Enalapril Maleate (Vasotec) 2.5 mg PO DAILY [facility] Last Admin: 10/12/17 10:49 Dose: Not Given Furosemide (Lasix) 40 mg PO DAILY [facility] Last Admin: 10/12/17 10:49 Dose: Not Given Metoprolol Tartrate (Lopressor) 25 mg PO BID [facility] Last Admin: 10/12/17 17:37 Dose: Not Given Quetiapine Fumarate (Seroquel) 25 mg PO DAILY [facility] Last Admin: 10/12/17 10:48 Dose: 25 mg Rosuvastatin Calcium (Crestor) 5 mg PO HS [facility] Last Admin: 10/12/17 21:42 Dose: 5 mg Spironolactone (Aldactone) 25 mg PO DAILY [facility] Last Admin: 10/12/17 10:48 Dose: Not Given - Labs Labs: 10/12/17 07:12 10/12/17 07:12 PT 12.7 SECONDS (9.7-12.2) H 10/08/17 10:45 INR 1.1 10/08/17 10:45 APTT 35 SECONDS (21-34) H 10/08/17 10:45
--- NOTE | 2017-10-12 21:53 | CP.PCM.PN ---
Subjective - Date & Time of Evaluation Date of Evaluation: 10/12/17 Time of Evaluation: 21:52 - Subjective Subjective: pt is more awake responding had NS VTACH no symptoms low bp seen by palliative possible hospice will dc in am Objective - Vital Signs/Intake and Output Vital Signs (last 24 hours): Temp Pulse Resp BP Pulse Ox 97.8 F 112 H 20 81/40 L 97 10/12/17 15:30 10/12/17 18:44 10/12/17 15:30 10/12/17 17:37 10/12/17 15:30 - Medications Medications: Current Medications Acetaminophen (Tylenol 325mg Tab) 650 mg PO Q6H PRN PRN Reason: Pain, Mild (1-3) Last Admin: 10/12/17 21:41 Dose: 650 mg Aspirin (Aspirin) 325 mg PO DAILY [facility] Last Admin: 10/12/17 10:48 Dose: 325 mg Enalapril Maleate (Vasotec) 2.5 mg PO DAILY [facility] Last Admin: 10/12/17 10:49 Dose: Not Given Furosemide (Lasix) 40 mg PO DAILY [facility] Last Admin: 10/12/17 10:49 Dose: Not Given Metoprolol Tartrate (Lopressor) 25 mg PO BID [facility] Last Admin: 10/12/17 17:37 Dose: Not Given Quetiapine Fumarate (Seroquel) 25 mg PO DAILY [facility] Last Admin: 10/12/17 10:48 Dose: 25 mg Rosuvastatin Calcium (Crestor) 5 mg PO HS [facility] Last Admin: 10/12/17 21:42 Dose: 5 mg Spironolactone (Aldactone) 25 mg PO DAILY [facility] Last Admin: 10/12/17 10:48 Dose: Not Given - Labs Labs: 10/12/17 07:12 10/12/17 07:12 PT 12.7 SECONDS (9.7-12.2) H 10/08/17 10:45 INR 1.1 10/08/17 10:45 APTT 35 SECONDS (21-34) H 10/08/17 10:45
[2017-10-12] MEDS ORDERED: Magnesium Sulfate 1 gm in D5W 1 GM/100 ML BAG IVPB ONE (21:54)
[2017-10-13 08:11] VITALS: RESP 18; O2SAT 97
--- NOTE | 2017-10-13 16:07 | PCM.HF ---
Heart Failure Core Measure - Heart Failure Ejection Fraction: Less Than 40 % JUVENCIO Inhibitor Prescribed: Yes Beta-Gee Prescribed: None Contraindication/Reason for not providing: ON LOPRESSOR 25 MG PO BID Angiotensin II Receptor Gee Prescribed: No Contraindication/Reason for not providing: ON JUVENCIO AnticoagulationTherapy for Atrial Fibrillation/Atrialflutter: No Contraindication/Reason for not providing: NO AFIB Aldosterone Antagonist Prescribed: No Contraindication/Reason for not providing: HOME WITH HOSPICE Hydralazine Nitrate Prescribed: No Contraindication/Reason for not providing: HOME WITH HOSPICE Implantable Cardioverter Defibrillator Therapy: Yes Cardiac Resynchronization Therapy Prescribed: No Contraindication/Reason for not providing: HAS PPM - Follow up Will be discharged to: Home (WITH HOME HOSPICE--[facility]) Follow Up Date (must be within 7 days from discharge): 10/14/17 Follow Up Time: 09:00
[2017-10-13 16:31] VITALS: BP 90/58; TEMP 98.2
[2017-10-13 16:46] VITALS: PULSE 99
--- NOTE | 2017-10-14 12:21 | CARD ---
APPROVED REPORT EKG Measurement Heart [id number] CA [id number] <Conclusion> Sinus tachycardia with occasional premature ventricular complexes Left ventricular hypertrophy with repolarization abnormality Posterior infarct, age undetermined Abnormal ECG
--- NOTE | 2017-10-17 20:18 | CP.PCM.DIS ---
Provider - Provider Date of Admission: 10/08/17 12:12 Attending physician: Anjana Shirley MD Time Spent in preparation of Discharge (in minutes): 45 Hospital Course - Lab Results Lab Results: Most Recent Lab Values WBC 12.5 K/uL (4.8-10.8) H 10/12/17 07:12 RBC 4.29 Mil/uL (4.40-5.90) L 10/12/17 07:12 Hgb 13.7 g/dL (12.0-18.0) 10/12/17 07:12 Hct 39.5 % (35.0-51.0) 10/12/17 07:12 MCV 92.0 fL (80.0-94.0) 10/12/17 07:12 MCH 32.0 pg (27.0-31.0) H 10/12/17 07:12 MCHC 34.7 g/dL (33.0-37.0) 10/12/17 07:12 RDW 15.2 % (11.5-14.5) H 10/12/17 07:12 Plt Count 334 K/uL (130-400) 10/12/17 07:12 MPV 8.7 fL (7.2-11.7) 10/12/17 07:12 Neut % (Auto) 77.2 % (50.0-75.0) H 10/12/17 07:12 Lymph % (Auto) 12.3 % (20.0-40.0) L 10/12/17 07:12 [place] % (Auto) 9.4 % (0.0-10.0) 10/12/17 07:12 Eos % (Auto) 0.6 % (0.0-4.0) 10/12/17 07:12 Baso % (Auto) 0.5 % (0.0-2.0) 10/12/17 07:12 Neut # 9.6 K/uL (1.8-7.0) H 10/12/17 07:12 Lymph # 1.5 K/uL (1.0-4.3) 10/12/17 07:12 [place] # 1.2 K/uL (0.0-0.8) H 10/12/17 07:12 Eos # 0.1 K/uL (0.0-0.7) 10/12/17 07:12 Baso # 0.1 K/uL (0.0-0.2) 10/12/17 07:12 Neutrophils % (Manual) 86 % (50-75) H 10/08/17 10:45 Lymphocytes % (Manual) 9 % (20-40) L 10/08/17 10:45 Monocytes % (Manual) 5 % (0-10) 10/08/17 10:45 Platelet Estimate Normal (NORMAL) 10/08/17 10:45 Anisocytosis (manual) Slight 10/08/17 10:45 PT 12.7 SECONDS (9.7-12.2) H 10/08/17 10:45 INR 1.1 10/08/17 10:45 APTT 35 SECONDS (21-34) H 10/08/17 10:45 Sodium 131 mmol/L (132-148) L 10/12/17 07:12 Potassium 4.5 mmol/L (3.6-5.2) 10/12/17 07:12 Chloride 98 mmol/L (98-107) 10/12/17 07:12 Carbon Dioxide 23 mmol/L (22-30) 10/12/17 07:12 Anion Gap 15 (10-20) 10/12/17 07:12 BUN 57 mg/dL (9-20) H 10/12/17 07:12 Creatinine 1.9 mg/dL (0.8-1.5) H 10/12/17 07:12 Est GFR ( Amer) 41 10/12/17 07:12 Est GFR (Non-Af Amer) 34 10/12/17 07:12 POC Glucose (mg/dL) 137 mg/dL (65-110) H 10/11/17 07:31 Random Glucose 106 mg/dL (75-110) 10/12/17 07:12 Calcium 8.6 mg/dl (8.6-10.4) 10/12/17 07:12 Magnesium 2.0 mg/dL (1.6-2.3) 10/10/17 07:30 Total Bilirubin 0.7 mg/dL (0.2-1.3) 10/12/17 07:12 AST 24 U/L (17-59) 10/12/17 07:12 ALT 22 U/L (21-72) 10/12/17 07:12 Alkaline Phosphatase 117 U/L (38-126) 10/12/17 07:12 Total Creatine Kinase 50 U/L (55-170) L 10/12/17 00:32 CK-MB (Mass) 0.89 ng/mL (0.0-3.38) 10/12/17 00:32 Troponin I 0.0530 ng/mL (0.00-0.120) 10/12/17 00:32 NT-Pro-B Natriuret Pep 3860 pg/mL (0-900) H 10/08/17 10:45 Total Protein 7.5 g/dL (6.3-8.3) 10/12/17 07:12 Albumin 3.7 g/dL (3.5-5.0) 10/12/17 07:12 Globulin 3.9 gm/dL (2.2-3.9) 10/12/17 07:12 Albumin/Globulin Ratio 0.9 (1.0-2.1) L 10/12/17 07:12 - Hospital Course Hospital Course: Chief complaint: generalised pain and fall History of present illness: 87-year-old male with history of congestive heart failure, hypertension, pacemaker placement. he was recently hospitalised with chf and chest pain. admitted with frequent falls and pain over the shoulder and neck pain and weakness According to the , he was having frequent to falls at home. He has some multiple abrasions in the upper extremity, and bleeding skin abrasions noted. Today he was also trying to get up, and unable to stand up and he fell. He claims that he has a severe neuropathy, causing trouble in feeling the right leg, and also frequent falling. During the episode of shortness of breath, he did not have any palpitation or chest pain. No dizziness. No cough, no fever, no nausea, no vomiting. He denies any urinary problems. No diarrhea. He did not have any recent doctor visit, but he is taking the medications at least 5 pills, but the patient is not remembering the medication. Past medical history: CHF, hypertension, renal stones, skin malignancy. Surgical history pacemaker. Patient also had a possibility of right lower abdominal scar appendectomy likely. Family history: None Social history: Remote history of smoking. No alcohol. Immunization history not available Review of systems: Patient is currently no headache. Visual symptoms negative, vision is able to see well. Denies any throat pain. No cough, shortness of breath, wheezing. No chest pain. Denies any abdominal pain, scar noted. Extremities multiple abrasions in the right side of the upper extremities more than the left side. Vital signs reviewed No neck vein distention noted Chest good air entry bilaterally, no wheezing or rales noted CVS regular heart sound, no murmur noted Abdomen soft, nontender. Scar noted Extremities no pedal edema Patient has multiple abrasions mainly involving the right upper extremity [employer] alert awake oriented -3, no functional neurological deficit Patient's labs reviewed EKG showing inferior leads and lateral leads ischemic changes noted. The T-wave inversion. Chest x-ray showing diffuse acute changes, likely CHF pattern. 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 Clinical patient was stable. Patient was being watched one-to-one. Medications are administered without any difficulty. He was eating well. Clinical stable. Discussed with the patient's , hospice advised to, patient agreed and willing to be discharged home with home hospice. Final diagnosis: Recurrent falls, weakness fatigue. Hypertension. Congestive heart failure. Systolic end-stage heart disease. Pacemaker. - Heart Failure Ejection Fraction: Less Than 40 % JUVENCIO Inhibitor Prescribed: Yes Beta-Gee Prescribed: None Contraindication/Reason for not providing: ON LOPRESSOR 25 MG PO BID Angiotensin II Receptor Gee Prescribed: No Contraindication/Reason for not providing: ON JUVENCIO AnticoagulationTherapy for Atrial Fibrillation/Atrialflutter: No Contraindication/Reason for not providing: NO AFIB Aldosterone Antagonist Prescribed: No Contraindication/Reason for not providing: HOME WITH HOSPICE Hydralazine Nitrate Prescribed: No Contraindication/Reason for not providing: HOME WITH HOSPICE Implantable Cardioverter Defibrillator Therapy: Yes Cardiac Resynchronization Therapy Prescribed: No Contraindication/Reason for not providing: HAS PPM - Follow up Will be discharged to: Home (WITH HOME HOSPICE--[facility]) Follow Up Date (must be within 7 days from discharge): 10/14/17 Follow Up Time: 09:00 Discharge Plan - Follow Up Plan Condition: GUARDED Disposition: HOME/ ROUTINE Instructions: Heart Failure (DC), Heart Healthy Diet (DC), Acute Coronary Syndrome (DC), Fall Prevention for Older Adults (GEN), Fall Prevention (DC) Additional Instructions: -[facility] WILL CONTINUE HOME HOSPICE SERVICES TO YOU. -CONTINUE ALL OF YOUR MEDICATIONS AT HOME USUAL. -FOLLOW UP WITH DR. SHIRLEY IN HIS OFFICE WITHIN 5-7 DAYS---CALL FOR APPT TIME. -IF YOU HAVE ANY OTHER QUESTIONS OR CONCERNS, CONTACT DR. SHIRLEY OR [facility]. Referrals: Anjana Shirley MD [Staff Provider] -
== END 2017-10-13 21:49 | disposition home or self-care (01) | DRG 292 ==
LOC: C.ER 10:09 → C.9E 12:12 → C.6T 12:31
PROVIDERS: ADMIT Internal Medicine; ATTEND Internal Medicine
DX: I13.0 Hypertensive heart and chronic kidney disease with heart failure and stage 1 through stage 4 chronic kidney disease, or unspecified chronic kidney disease (principal); I47.2 Ventricular tachycardia; N39.0 Urinary tract infection, site not specified; E11.22 Type 2 diabetes mellitus with diabetic chronic kidney disease; I50.20 Unspecified systolic (congestive) heart failure; I50.84 End stage heart failure; W19.XXXA Unspecified fall, initial encounter; S40.811A Abrasion of right upper arm, initial encounter; N18.9 Chronic kidney disease, unspecified; R29.6 Repeated falls; M25.512 Pain in left shoulder; Z85.46 Personal history of malignant neoplasm of prostate; Z87.442 Personal history of urinary calculi; Z87.891 Personal history of nicotine dependence; Z91.81 History of falling; Z95.0 Presence of cardiac pacemaker

== ENCOUNTER 2017-10-20 12:02 | Inpatient (IN) | payer MEDICARE ==
--- NOTE | 2017-10-20 12:20 | C.PDOC ---
- HPI Time Seen by Provider: 10/20/17 12:19 Chief Complaint (Nursing): Trauma Past Medical History Vital Signs: Last Vital Signs Temp 98.2 F 10/20/17 12:12 Pulse 86 10/20/17 12:12 Resp 18 10/20/17 12:12 BP 87/48 L 10/20/17 12:12 Pulse Ox 99 10/20/17 12:12 - Medical History PMH: CHF, HTN, Kidney Stones, Malignancy (SKIN), Chronic Kidney Disease Surgical History: Pacemaker - [facility] Procedures ASSISTANCE WITH RESPIRATORY VENTILATION, >96 HRS, CPAP (08/22/17) VACCINATION NEC (10/04/13) Family History: States: Unknown Family Hx - Social History Hx Tobacco Use: No Hx Alcohol Use: No Hx Substance Use: No - Immunization History Hx Tetanus Toxoid Vaccination: No Hx Influenza Vaccination: No Hx Pneumococcal Vaccination: No ED Course And Treatment O2 Sat by Pulse Oximetry: 99 Disposition - Disposition
[2017-10-20] MEDS ORDERED: Sodium Chloride 0.9% 1,000 ML IV ONE ×2 (13:00→14:28)
[2017-10-20 13:44] LABS: BASO # 0.1 K/uL (0.0-0.2); BASO % 0.4 % (0.0-2.0); EOS # 0.1 K/uL (0.0-0.7); EOS % 0.6 % (0.0-4.0); HEMOGLOBIN 12.5 g/dL (12.0-18.0); LYMPH # 1.2 K/uL (1.0-4.3); LYMPH % 7.9 % (20.0-40.0); MEAN CELL VOLUME 93.9 fL (80.0-94.0); MEAN CORPUSCULAR HEMOGLOBIN 32.2 pg (27.0-31.0); MEAN CORPUSCULAR HGB CONC 34.3 g/dL (33.0-37.0); MONO # 0.9 K/uL (0.0-0.8); MONO % 5.7 % (0.0-10.0); NEUT # 13.3 K/uL (1.8-7.0); NEUT % 85.4 % (50.0-75.0); PLATELET COUNT 382 K/uL (130-400); RED CELL DISTRIBUTION WIDTH 14.9 % (11.5-14.5); WHITE BLOOD COUNT 15.6 K/uL (4.8-10.8)
--- NOTE | 2017-10-20 13:50 | C.PDOC ---
History Of Present Illness 87 year old male with history of low BP is brought to the ED after sustaining a fall at home. Patient reports his had fallen and while trying to pick her up he lost balance and fell backward striking his back on the floor. He had had trouble getting up and called EMS. Patient is now c/o back and neck pain. When EMS arrived he was found to be hypotensive, but he normally has low blood pressure. Patient denies LOC, headache, head injury, blurry vision, nausea, vomit, weakness, numbness. He was given IV fluids and pressure is imporved on arrival. - HPI Time Seen by Provider: 10/20/17 12:19 Chief Complaint (Nursing): Trauma History Per: Patient History/Exam Limitations: no limitations Onset/Duration Of Symptoms: Days Injury Occurred (Timing): Just Before Arrival Location Of Injury: Right: Chest, Neck, Left: Chest, Neck, Anterior: Chest, Posterior: Back, Neck Recent travel outside of the [place] States: No Additional History Per: Patient Past Medical History Reviewed: Historical Data, Nursing Documentation, Vital Signs Vital Signs: Last Vital Signs Temp 98.2 F 10/20/17 12:12 Pulse 88 10/20/17 13:50 Resp 16 10/20/17 13:50 BP 112/64 10/20/17 13:50 Pulse Ox 99 10/20/17 15:38 - Medical History PMH: CHF, HTN, Kidney Stones, Malignancy (SKIN), Chronic Kidney Disease Surgical History: Pacemaker - [facility] Procedures ASSISTANCE WITH RESPIRATORY VENTILATION, >96 HRS, CPAP (08/22/17) VACCINATION NEC (10/04/13) Family History: States: Unknown Family Hx - Social History Hx Tobacco Use: No Hx Alcohol Use: No Hx Substance Use: No - Immunization History Hx Tetanus Toxoid Vaccination: No Hx Influenza Vaccination: No Hx Pneumococcal Vaccination: No Review Of Systems Constitutional: Negative for: Fever, Chills Eyes: Negative for: Vision Change Cardiovascular: Positive for: Chest Pain. Negative for: Palpitations Respiratory: Negative for: Cough, Shortness of Breath Gastrointestinal: Negative for: Nausea, Vomiting, Abdominal Pain Genitourinary: Negative for: Dysuria, Hematuria Musculoskeletal: Positive for: Neck Pain, Back Pain Skin: Negative for: Rash Neurological: Negative for: Weakness, Numbness Physical Exam - Physical Exam Appears: Non-toxic, No Acute Distress Skin: Warm, Dry, Other (senile chymosis) Head: Atraumatic, Normacephalic Eye(s): bilateral: Normal Inspection Nose: No Discharge, No Deformity Oral Mucosa: Moist Neck: Normal ROM, Midline Cervical Tenderness, No Step Off Deformity, Supple Chest: Symmetrical Cardiovascular: Rhythm Regular, No Murmur Respiratory: Normal Breath Sounds, No Rales, No Rhonchi, No Wheezing Gastrointestinal/Abdominal: Soft, No Tenderness, No Guarding, No Rebound Back: Other (brusing right lower posterior thoracic along left ribs) Extremity: Normal ROM, No Pedal Edema, No Calf Tenderness, No Deformity, No Swelling Neurological/Psych: Oriented x3, Normal Speech, Normal Cognition Gait: Steady ED Course And Treatment - Laboratory Results Result Diagrams: 10/20/17 13:40 10/20/17 13:40 Lab Interpretation: Abnormal (WBC 15.6, BUN 70, Cr 1.2, UA WBC 1691, nitrite+) O2 Sat by Pulse Oximetry: 99 (On RA) Pulse Ox Interpretation: Normal - Other Rad Left ribs with CXR X-Ray: Viewed By Me, Read By Radiologist Interpretation: Accession No. : [id number]. Patient Name / ID : OLIVIA FUENTES / [id number]. Exam Date : 10/20/2017 13:54:45 ( Approved ). Study Comment : Sex / Age : M / 87Y. Creator : Trav Pineda MD. Dictator : Trav Pineda MD. Assistant Family Teacher : Medicare Biller : Trav Pineda MD. Approver2 : Report Date : 10/20/2017 14:27:41. My Comment : . PROCEDURE: Radiographs of the Chest and Left Ribs. HISTORY: fall. COMPARISON: Chest radiograph dated 10/08/2017. TECHNIQUE: Frontal radiograph of the chest and multiple oblique radiographs of the left ribs were obtained. FINDINGS: LEFT RIBS: No fracture or focal lesion visualized. LUNGS: Stable chronic prominence of the bilateral interstitial markings. PLEURA: No pneumothorax or pleural fluid. CARDIOVASCULAR: Left subclavian access AICD/ pacemaker redemonstrated. Atherosclerotic aortic calcifications. Cardiomediastinal silhouette stably prominent. No pulmonary vascular congestion. OTHER FINDINGS: None. IMPRESSION: Unremarkable radiographs of the chest and left ribs. No left rib fracture. - CT Scan/US Cervical spine Other Rad Studies (CT/US): Read By Radiologist, Radiology Report Reviewed CT/US Interpretation: Accession No. : [id number]. Patient Name / ID : OLIVIA FUENTES / [id number]. Exam Date : 10/20/2017 15:02:05 ( Approved ). Study Comment : Sex / Age : M / 87Y. Creator : Jessica Benoit. Dictator : Trav Pineda MD. Assistant Family Teacher : Medicare Biller : Trav Pineda MD. Approver2 : Report Date : 10/20/2017 15:07:03. My Comment : . PROCEDURE: CT Cervical Spine without contrast. HISTORY: Trauma/fall. COMPARISON: CT scan of the cervical spine dated 05/27/2012. TECHNIQUE: Axial computed tomography images were obtained of the cervical spine without the use of intravenous contrast. Coronal and sagittal reformatted images were created and reviewed. Radiation dose: Total exam DLP = 526.1 mGy-cm. This CT exam was performed using one or more of the following dose reduction techniques: Automated exposure control, adjustment of the mA and/or kV according to patient size, and/or use of iterative reconstruction technique. FINDINGS: VERTEBRAE: No fracture. Normal alignment. No destructive bony lesion. DISCS/SPINAL CANAL/ NEURAL FORAMINA: Multilevel disc space narrowing with anterior endplate osteophytic changes and posterior disc osteophyte complexes, most prominent at C5-6, C6-7 and C7-T1. PARASPINAL SOFT TISSUES: Unremarkable. OTHER FINDINGS: Stable left upper lobe 1.8 x 1.3 centimeters spiculated nodule. IMPRESSION: No acute fracture. Multilevel degenerative changes. Stable left upper lobe 1.8 centimeter spiculated nodule. Reevaluation Time: 15:45 Reassessment Condition: Improved (after IV fluids and antibiotics) - Physician Consult Information Time Consulting Physician Contacted: 15:45 Physician Contacted: Anjana Shirley Outcome Of Conversation: Patient will be kept for observation, treatment of dehydration and UTI and consideration for rehab placement. Medical Decision Making Medical Decision Making: Impression : back, neck, chest pain SP falling Plan: * CT cervical spine * Labs * UA * Ribs/chest X-Ray Disposition Discussed With : + - Disposition Disposition: HOSPITALIZED Disposition Time: 15:47 Condition: IMPROVED Forms: [facility] ([place]) - POA Present On Arrival: Falls Or Trauma - Clinical Impression Clinical Impression: Contusion of left back wall of thorax, Dehydration, UTI (urinary tract infection), Fall - Scribe Statement The provider has reviewed the documentation as recorded by the Scribe Jed Montejo All medical record entries made by the Scribe were at my direction and personally dictated by me. I have reviewed the chart and agree that the record accurately reflects my personal performance of the history, physical exam, medical decision making, and the department course for this patient. I have also personally directed, reviewed, and agree with the discharge instructions and disposition.
[2017-10-20 13:52] LABS: URINE BACTERIA MANY (<OCC); URINE BILIRUBIN NEGATIVE (NEGATIVE); URINE BLOOD 1+ (NEGATIVE); URINE CLARITY Hazy (Clear); URINE COLOR Yellow (YELLOW); URINE GLUCOSE (UA) NORMAL (Normal); URINE LEUKOCYTE ESTERASE 3+ Leu/uL (Negative); URINE NITRATE POSITIVE (NEGATIVE); URINE PROTEIN 1+ mg/dL (NEGATIVE); URINE UROBILINOGEN NORMAL mg/dL (0.2-1.0); WBC CLUMPS OCC /hpf
[2017-10-20 14:02] LABS: ALB/GLOB RATIO 0.9 (1.0-2.1); ALBUMIN 3.1 g/dL (3.5-5.0); ALT/SGPT 21 U/L (21-72); AST/SGOT 26 U/L (17-59); BLOOD UREA NITROGEN 70 mg/dL (9-20); CALCIUM 7.6 mg/dl (8.6-10.4); GFR AFRICAN-AMERICAN > 60; GFR NON-AFRICAN AMERICAN 57
[2017-10-20 14:16] LABS: BANDS 2 % (0-2); EOSINOPHIL 2 % (0-4); LYMPHOCYTE 6 % (20-40); MONOCYTE 9 % (0-10); NEUTROPHIL 81 % (50-75); PLATELET ESTIMATE NORMAL (NORMAL); TOTAL CELLS COUNTED 100
[2017-10-20] MEDS ORDERED: cefTRIAXone IV 1 gm in Dextros 50 ML IVPB ONE (14:28)
--- NOTE | 2017-10-20 14:29 | RAD ---
PROCEDURE: Radiographs of the Chest and Left Ribs. HISTORY: fall COMPARISON: Chest radiograph dated 10/08/2017. TECHNIQUE: Frontal radiograph of the chest and multiple oblique radiographs of the left ribs were obtained. FINDINGS: LEFT RIBS: No fracture or focal lesion visualized. LUNGS: Stable chronic prominence of the bilateral interstitial markings. PLEURA: No pneumothorax or pleural fluid. CARDIOVASCULAR: Left subclavian access AICD/ pacemaker redemonstrated. Atherosclerotic aortic calcifications. Cardiomediastinal silhouette stably prominent. No pulmonary vascular congestion. OTHER FINDINGS: None. IMPRESSION: Unremarkable radiographs of the chest and left ribs. No left rib fracture.
[2017-10-20] MEDS ORDERED: Sodium Chloride 0.9% 2,000 ML ONE (15:17)
--- NOTE | 2017-10-20 15:20 | CT ---
PROCEDURE: CT Cervical Spine without contrast HISTORY: Trauma/fall COMPARISON: CT scan of the cervical spine dated 05/27/2012. TECHNIQUE: Axial computed tomography images were obtained of the cervical spine without the use of intravenous contrast. Coronal and sagittal reformatted images were created and reviewed. Radiation dose: Total exam DLP = 526.1 mGy-cm. This CT exam was performed using one or more of the following dose reduction techniques: Automated exposure control, adjustment of the mA and/or kV according to patient size, and/or use of iterative reconstruction technique. FINDINGS: VERTEBRAE: No fracture. Normal alignment. No destructive bony lesion. DISCS/SPINAL CANAL/NEURAL FORAMINA: Multilevel disc space narrowing with anterior endplate osteophytic changes and posterior disc osteophyte complexes, most prominent at C5-6, C6-7 and C7-T1. PARASPINAL SOFT TISSUES: Unremarkable. OTHER FINDINGS: Stable left upper lobe 1.8 x 1.3 centimeters spiculated nodule. IMPRESSION: No acute fracture. Multilevel degenerative changes. Stable left upper lobe 1.8 centimeter spiculated nodule.
[2017-10-20] MEDS ORDERED: Influenza Vaccine 60 mcg/0.5 mL SYR (4YR UP) IM ONE (20:45)
[2017-10-20] MEDS ORDERED: Pneumococcal 23-Valent Vaccine IM ONE (20:45)
[2017-10-20] MEDS: Ciprofloxacin 200mg/100ml D5W 100 ML IVPB SCH (22:12)
--- NOTE | 2017-10-20 23:41 | CP.PCM.HP ---
History of Present Illness - History of Present Illness History of Present Illness: Chief complaint: Fall at home History of present illness: 87-year-old male with a history of congestive heart failure, end-stage heart disease, history of recurrent fall, dementia recently hospitalized with a similar situation. During the last admission patient was admitted, and he was sent home with home hospice. Recent was at the time DNR. Now she came to the emergency room with the similar problems. He was trying to do help his , and trying to pich her up, and he lost his balance, and he fell backward, and had injury to his back. He fell on the floor. And he is having some trouble in getting up, but finally he called the ambulance , came into the emergency room. He was noted to have a low blood pressure also, he did not have any loss of consciousness. He claims that he is trying to help his , but his last balance. Past medical history: Hypertension, history of congestive heart failure ischemic cardiomyopathy, severe systolic heart failure with low ejection fraction. Patient blood pressure is on the low side, renal insufficiency. Allergies no known drug allergies Personal history: Nonsmoker. He lives with his , dementia, having difficulty in doing things in the house. During the last admission but had increasingly troubled and accommodating both and , finally patient and the family agreed for home hospice, and sent home. Review of system: Patient is currently having some headache. Scalp injury noted. Also abrasions in the hand and the legs noted. He is also feeling somewhat cold. On examination: Vital signs noted, blood pressure slightly on the low side. Irregular heart sound. During the last admission patient had episodes of ventricular tachyarrhythmias. Abdomen soft nontender extremities 1+ edema Labs reviewed Elevated BUN/creatinine noted, worsening during this admission. WBC is also elevated. Urine analysis showing evidence of pyuria, bacteriuria. Chest x-ray was showing no evidence of any fracture, pacemaker noted, AICD. Assessment and recommendation: 87-year-old male with a history of congestive heart failure, ischemic cardiomegaly, stage IV heart disease, recurrent fall, admitted to the hospital following a fall. AICD. Patient now having worsening renal insufficiency, and also worsening urinary tract infection, and associated with the sepsis. Patient will be started on IV antibiotic. Closely monitor. The right upper lung mass, will get a CT of the chest. During the last admission patient was DNR, will get palliative care evaluation. Present on Admission - Present on Admission Any Indicators Present on Admission: No History of DVT/PE: No History of Uncontrolled Diabetes: No Urinary Catheter: No Decubitus Ulcer Present: No Past Patient History - Infectious Disease Hx of Infectious Diseases: None - Past Medical History & Family History Past Medical History?: Yes - Past Social History Smoking Status: Never Smoked - CARDIAC Hx Congestive Heart Failure: Yes Hx Hypertension: Yes Hx Pacemaker: Yes - PULMONARY Hx Respiratory Disorders: No - NEUROLOGICAL Hx Neurological Disorder: No - HEENT Hx HEENT Problems: No - RENAL Hx Chronic Kidney Disease: Yes Hx Kidney Stones: Yes - ENDOCRINE/METABOLIC Hx Endocrine Disorders: Yes Hx Diabetes Mellitus Type 2: Yes - HEMATOLOGICAL/ONCOLOGICAL Hx Blood Disorders: Yes Hx Cancer: Yes (PROSTATE) - INTEGUMENTARY Hx Dermatological Problems: No - MUSCULOSKELETAL/RHEUMATOLOGICAL Hx Musculoskeletal Disorders: Yes Hx Falls: Yes - GASTROINTESTINAL Hx Gastrointestinal Disorders: No - GENITOURINARY/GYNECOLOGICAL Hx Genitourinary Disorders: Yes Hx Prostate Cancer: Yes - PSYCHIATRIC Hx Substance Use: No - SURGICAL HISTORY Hx Surgeries: No - ANESTHESIA Hx Anesthesia: No Hx Anesthesia Reactions: No Hx Malignant Hyperthermia: No Meds Allergies/Adverse Reactions: Allergies Allergy/AdvReac Type Severity Reaction Status Date / Time No Known Allergies Allergy Verified 10/20/17 12:17 Results - Vital Signs Recent Vital Signs: Last Vital Signs Temp 98.1 F 10/20/17 20:00 Pulse 94 H 10/20/17 20:00 Resp 20 10/20/17 20:00 BP 96/58 L 10/20/17 20:00 Pulse Ox 98 10/20/17 20:00 - Labs Result Diagrams: 10/20/17 13:40 10/20/17 13:40 Labs: Laboratory Results - last 24 hr 10/20/17 10/20/17 10/20/17 13:40 13:40 13:40 WBC 15.6 H RBC 3.90 L Hgb 12.5 Hct 36.6 MCV 93.9 MCH 32.2 H MCHC 34.3 RDW 14.9 H Plt Count 382 MPV 8.0 Neut % (Auto) 85.4 H Lymph % (Auto) 7.9 L [place] % (Auto) 5.7 Eos % (Auto) 0.6 Baso % (Auto) 0.4 Neut # 13.3 H Lymph # 1.2 [place] # 0.9 H Eos # 0.1 Baso # 0.1 Neutrophils % (Manual) 81 H Band Neutrophils % 2 Lymphocytes % (Manual) 6 L Monocytes % (Manual) 9 Eosinophils % (Manual) 2 Platelet Estimate Normal RBC Morphology Normal Sodium 133 Potassium 4.8 Chloride 102 Carbon Dioxide 22 Anion Gap 13 BUN 70 H Creatinine 1.2 Est GFR ( Amer) > 60 Est GFR (Non-Af Amer) 57 Random Glucose 78 Calcium 7.6 L Total Bilirubin 0.6 AST 26 ALT 21 Alkaline Phosphatase 91 Total Protein 6.7 Albumin 3.1 L Globulin 3.5 Albumin/Globulin Ratio 0.9 L Urine Color Yellow Urine Clarity Hazy Urine pH 5.0 Ur Specific [place] 1.017 Urine Protein 1+ H Urine Glucose (UA) Normal Urine Ketones Negative Urine Blood 1+ H Urine Nitrate Positive H Urine Bilirubin Negative Urine Urobilinogen Normal Ur Leukocyte Esterase 3+ H Urine WBC (Auto) 1691 H Urine RBC (Auto) 23 H Urine WBC Clumps (Auto) Occ H Urine Bacteria Many H
[2017-10-21] MEDS: Ciprofloxacin 200mg/100ml D5W 100 ML IVPB SCH ×2 (10:43→21:20)
--- NOTE | 2017-10-21 10:54 | CT ---
PROCEDURE: CT scan brain dated 10/21/2017. HISTORY: Status post fall COMPARISON: Comparison made with CT scan brain 08/22/2017. TECHNIQUE: Axial computed tomography images were obtained through the head/brain without intravenous contrast. Radiation dose: Total exam DLP = 937.39 mGy-cm. This CT exam was performed using one or more of the following dose reduction techniques: Automated exposure control, adjustment of the mA and/or kV according to patient size, and/or use of iterative reconstruction technique. FINDINGS: HEMORRHAGE: No acute parenchymal, subarachnoid nor extra-axial hemorrhage. BRAIN: Moderate to significant diffuse/confluent chronic white matter ischemic changes seen extending peripherally into the deep and subcortical regions of both cerebral hemispheres. There is some extension of these changes into the white matter tracts of both basal nuclei. 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 Minor vascular calcifications of the carotid siphons. VENTRICLES: Marked dilatation of the 3rd and lateral ventricles may in part be due to central volume loss however the possibility of chronic compensated obstructive non communicating type hydrocephalus not excluded. The normal pressure hydrocephalus (NPH) could be considered only if the clinical triad of dementia, ataxia and incontinence is present. CALVARIUM: There are no acute calvarial fractures. PARANASAL SINUSES: Minor mucosal thickening seen within a few ethmoid air cells. MASTOID AIR CELLS: Unremarkable as visualized. No inflammatory changes. OTHER FINDINGS: None. IMPRESSION: Moderate diffuse/ confluent chronic white matter ischemic changes with extension of these changes into the white matter tracts of both basal nuclei. 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 Persistent dilatation 3rd and lateral ventricles which in part is likely due to central volume loss however the possibility of chronic compensated obstructive hydrocephalus to be excluded. Normal pressure hydrocephalus to be considered only if the clinical triad of dementia, ataxia and incontinence is present.
--- NOTE | 2017-10-21 11:57 | CT ---
PROCEDURE: CT scan chest dated 10/21/2017 HISTORY: Lung mass COMPARISON: Correlation made with chest radiograph and left rib series dated 10/20/2017 TECHNIQUE: Contiguous axial images were obtained through the chest without intravenous contrast enhancement. Sagittal and coronal reconstructions were performed. Radiation dose (DLP): 476.84 mGy-cm. This CT exam was performed using one or more of the following dose reduction techniques: Automated exposure control, adjustment of the mA and/or kV according to patient size, and/or use of iterative reconstruction technique. FINDINGS: LUNGS: Calcified pleural plaque right upper lung field as has been detailed below There is a somewhat rounded approximately 12.7 mm mass density left of anteromedial lung apex which does exhibit some spiculated borders. Possibility of underlying malignancy not excluded. Additionally, there are nodular pleural-based thickening changes and parenchymal scarring in both lung apices. Underlying fibrosis also present most pronounced in the upper lung mcnair. Chronic pleural thickening changes are also present both posterior sulci. There is a small approximately 3.7 mm subpleural bleb left lateral lower lung field best seen on axial series 3, image number 73. In addition, there is a small calcified CT granuloma left lingular region associate with some adjacent scarring. Tiny of two tiny nodular densities right upper lobe along the lateral convexity seen on axial image number 44 MEDIASTINUM: Heart size is within range of normal. Coronary artery calcifications are present. No significant pericardial effusion. In situ single lead pacemaker/ defibrillator. Ascending thoracic aorta measures approximately 3.6 cm and descending thoracic aorta measures approximately 2.74 cm. Pulmonary trunk measures approximately 3.3 cm. Central airways are midline and patent. No large central endoluminal lesions. Air is seen intermittently throughout the esophagus. No significant mediastinal adenopathy. Evaluation for hilar adenopathy is limited due to the lack of circulating intravenous contrast material. PLEURA: Small calcified pleural plaque located along the pleural surface right anterior upper izabel thorax seen to better advantage on this study compared the chest radiographs. While this could be secondary to localized inflammation, the possibility of a prior asbestos exposure not completely excluded though there are no other obvious calcified pleural plaque changes seen. BONES: Mild multilevel degenerative spondylosis of the thoracic spine. No acute compression fractures no retropulsed fragments. UPPER ABDOMEN: Small splenic calcification. Bilateral adrenal nodules ; left measuring approximately 13.5 mm and right measuring approximately 9.4 mm. The pancreas is somewhat atrophic and fatty replaced with a few tiny scattered calcifications possibly vascular in origin cholelithiasis. . OTHER FINDINGS: None. IMPRESSION: There is a small approximately 12.7 mm nodular mass density left upper lobe with few peripheral spiculations. Underlying malignancy must be considered. . Calcified pleural plaque right anterior upper lung field. Nodular biapical pleural thickening with parenchymal scarring and fibrosis upper lobe predominance. There are also pleural thickening changes both posterior sulci. Small calcified granuloma left lingular region consistent with prior exposure to a granulomatous disease process. . Subpleural small nodular density left lateral lower lung field with tiny nodular densities right upper lobe Small splenic calcification. Bilateral adrenal nodules Cholelithiasis.
[2017-10-22 07:44] LABS: BASO # 0.1 K/uL (0.0-0.2); BASO % 1.5 % (0.0-2.0); EOS # 0.1 K/uL (0.0-0.7); EOS % 1.5 % (0.0-4.0); HEMOGLOBIN 12.8 g/dL (12.0-18.0); LYMPH % 12.5 % (20.0-40.0); MEAN CELL VOLUME 93.2 fL (80.0-94.0); MEAN CORPUSCULAR HEMOGLOBIN 32.3 pg (27.0-31.0); MEAN CORPUSCULAR HGB CONC 34.6 g/dL (33.0-37.0); MONO # 0.6 K/uL (0.0-0.8); NEUT # 6.2 K/uL (1.8-7.0); NEUT % 76.5 % (50.0-75.0); RBC 3.98 Mil/uL (4.40-5.90); RED CELL DISTRIBUTION WIDTH 14.5 % (11.5-14.5); WHITE BLOOD COUNT 8.1 K/uL (4.8-10.8)
[2017-10-22 08:11] LABS: BLOOD UREA NITROGEN 34 mg/dL (9-20); CALCIUM 8.9 mg/dl (8.6-10.4); GFR AFRICAN-AMERICAN > 60; GFR NON-AFRICAN AMERICAN > 60
[2017-10-22] MEDS: Ciprofloxacin 200mg/100ml D5W 100 ML IVPB SCH ×2 (10:11→21:39)
--- NOTE | 2017-10-22 22:50 | CP.PCM.PN ---
Subjective - Date & Time of Evaluation Date of Evaluation: 10/21/17 Time of Evaluation: 22:49 - Subjective Subjective: Patient is feeling okay, comfortable, not in any distress. Leg exam is unremarkable. Patient underwent a CT of the chest. Today's is pending. Will continue to monitor. 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 Objective - Vital Signs/Intake and Output Vital Signs (last 24 hours): Temp Pulse Resp BP Pulse Ox 97.9 F 82 18 90/54 L 99 10/22/17 15:00 10/22/17 15:00 10/22/17 15:00 10/22/17 17:54 10/22/17 15:00 Intake and Output: 10/22/17 10/23/17 18:59 06:59 Intake Total 670 Output Total 700 Balance -30 - Medications Medications: Current Medications Acetaminophen (Tylenol 325mg Tab) 650 mg PO Q6H PRN PRN Reason: Pain, Mild (1-3) Last Admin: 10/22/17 21:36 Dose: 650 mg Aspirin (Ecotrin) 81 mg PO DAILY [facility] Last Admin: 10/22/17 10:12 Dose: 81 mg Docusate Sodium (Colace) 100 mg PO BID [facility] Last Admin: 10/22/17 17:54 Dose: 100 mg Enalapril Maleate (Vasotec) 2.5 mg PO DAILY [facility] Last Admin: 10/22/17 10:16 Dose: Not Given Furosemide (Lasix) 40 mg PO DAILY [facility] Last Admin: 10/21/17 10:39 Dose: 40 mg Heparin Sodium (Porcine) (Heparin) 5,000 units SC Q12 [facility] Last Admin: 10/22/17 21:34 Dose: 5,000 units Ciprofloxacin (Cipro 200mg/100ml D5w) 100 mls @ 67 mls/hr IVPB Q12 [facility] Last Admin: 10/22/17 21:39 Dose: 67 mls/hr Lactulose (Enulose) 20 gm PO HS [facility] Last Admin: 10/22/17 21:39 Dose: 20 gm Metoprolol Tartrate (Lopressor) 25 mg PO BID [facility] Last Admin: 10/22/17 17:54 Dose: Not Given - Labs Labs: 10/22/17 07:12 10/22/17 07:12
--- NOTE | 2017-10-22 22:51 | CP.PCM.PN ---
Subjective - Date & Time of Evaluation Date of Evaluation: 10/22/17 Time of Evaluation: 22:50 - Subjective Subjective: Patient is feeling okay, comfortable, not in any distress. Leg exam is unremarkable. Patient underwent a CT of the chest. showing evidence of 1. 2 centimeter nodule. 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 Will continue to monitor. 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 Objective - Vital Signs/Intake and Output Vital Signs (last 24 hours): Temp Pulse Resp BP Pulse Ox 97.9 F 82 18 90/54 L 99 10/22/17 15:00 10/22/17 15:00 10/22/17 15:00 10/22/17 17:54 10/22/17 15:00 Intake and Output: 10/22/17 10/23/17 18:59 06:59 Intake Total 670 Output Total 700 Balance -30 - Medications Medications: Current Medications Acetaminophen (Tylenol 325mg Tab) 650 mg PO Q6H PRN PRN Reason: Pain, Mild (1-3) Last Admin: 10/22/17 21:36 Dose: 650 mg Aspirin (Ecotrin) 81 mg PO DAILY [facility] Last Admin: 10/22/17 10:12 Dose: 81 mg Docusate Sodium (Colace) 100 mg PO BID [facility] Last Admin: 10/22/17 17:54 Dose: 100 mg Enalapril Maleate (Vasotec) 2.5 mg PO DAILY [facility] Last Admin: 10/22/17 10:16 Dose: Not Given Furosemide (Lasix) 40 mg PO DAILY [facility] Last Admin: 10/21/17 10:39 Dose: 40 mg Heparin Sodium (Porcine) (Heparin) 5,000 units SC Q12 [facility] Last Admin: 10/22/17 21:34 Dose: 5,000 units Ciprofloxacin (Cipro 200mg/100ml D5w) 100 mls @ 67 mls/hr IVPB Q12 [facility] Last Admin: 10/22/17 21:39 Dose: 67 mls/hr Lactulose (Enulose) 20 gm PO HS [facility] Last Admin: 10/22/17 21:39 Dose: 20 gm Metoprolol Tartrate (Lopressor) 25 mg PO BID [facility] Last Admin: 10/22/17 17:54 Dose: Not Given - Labs Labs: 10/22/17 07:12 10/22/17 07:12
[2017-10-23 03:36] LABS: URINE BACTERIA MOD (<OCC); URINE BILIRUBIN NEGATIVE (NEGATIVE); URINE BLOOD 1+ (NEGATIVE); URINE CLARITY Turbid (Clear); URINE COLOR Amber (YELLOW); URINE GLUCOSE (UA) NORMAL (Normal); URINE LEUKOCYTE ESTERASE 3+ Leu/uL (Negative); URINE NITRATE NEGATIVE (NEGATIVE); URINE PROTEIN 1+ mg/dL (NEGATIVE); URINE UROBILINOGEN NORMAL mg/dL (0.2-1.0); WBC CLUMPS MANY /hpf
[2017-10-23 07:53] LABS: HEMOGLOBIN 11.8 g/dL (12.0-18.0); MEAN CELL VOLUME 91.9 fL (80.0-94.0); MEAN CORPUSCULAR HEMOGLOBIN 32.3 pg (27.0-31.0); MEAN CORPUSCULAR HGB CONC 35.1 g/dL (33.0-37.0); MEAN PLATELET VOLUME 8.2 fL (7.2-11.7); RBC 3.66 Mil/uL (4.40-5.90); RED CELL DISTRIBUTION WIDTH 14.5 % (11.5-14.5); WHITE BLOOD COUNT 8.5 K/uL (4.8-10.8)
[2017-10-23 08:21] LABS: ALB/GLOB RATIO 0.9 (1.0-2.1); ALT/SGPT 30 U/L (21-72); AST/SGOT 36 U/L (17-59); BLOOD UREA NITROGEN 25 mg/dL (9-20); CALCIUM 8.6 mg/dl (8.6-10.4); GFR AFRICAN-AMERICAN > 60; GFR NON-AFRICAN AMERICAN > 60
[2017-10-23] MEDS: Ciprofloxacin 200mg/100ml D5W 100 ML IVPB SCH ×2 (10:07→21:00)
[2017-10-24] MEDS: Ciprofloxacin 200mg/100ml D5W 100 ML IVPB SCH ×2 (10:38→21:02)
[2017-10-24 13:40] VITALS: RESP 20
--- NOTE | 2017-10-25 09:01 | CP.PCM.PN ---
Subjective - Date & Time of Evaluation Date of Evaluation: 10/24/17 Time of Evaluation: 09:01 - Subjective Subjective: The patient is still feeling somewhat depressed. He is eating okay. Cough minimally noted. Leg swelling is less He is awake in his legs with walking, denies any chest pain or shortness of breath no. Vital signs reviewed No neck vein distention noted Bilateral wheezing noted in the lungs CVS regular heart sound, no murmur noted Abdomen soft, nontender. 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 Very low ejection fraction. Hypertension. Dementia. Patient has a recurrent fall COPD. Lung mass. Objective - Vital Signs/Intake and Output Vital Signs (last 24 hours): Temp Pulse Resp BP Pulse Ox 98.2 F 89 20 94/56 L 97 10/24/17 23:32 10/24/17 23:32 10/24/17 23:32 10/24/17 23:32 10/24/17 23:32 Intake and Output: 10/25/17 10/25/17 06:59 18:59 Intake Total 650 Balance 650 - Medications Medications: Current Medications Acetaminophen (Tylenol 325mg Tab) 650 mg PO Q6H PRN PRN Reason: Pain, Mild (1-3) Last Admin: 10/25/17 04:28 Dose: 650 mg Aspirin (Ecotrin) 81 mg PO DAILY [facility] Last Admin: 10/24/17 10:03 Dose: 81 mg Docusate Sodium (Colace) 100 mg PO BID [facility] Last Admin: 10/24/17 17:42 Dose: 100 mg Enalapril Maleate (Vasotec) 2.5 mg PO DAILY [facility] [place] Last Admin: 10/24/17 10:08 Dose: 2.5 mg Furosemide (Lasix) 40 mg PO DAILY [facility] [place] Last Admin: 10/21/17 10:39 Dose: 40 mg Ciprofloxacin (Cipro 200mg/100ml D5w) 100 mls @ 67 mls/hr IVPB Q12 [facility] [place] Last Admin: 10/24/17 21:02 Dose: 67 mls/hr Lactulose (Enulose) 20 gm PO HS [facility] [place] Last Admin: 10/24/17 21:02 Dose: 20 gm Metoprolol Tartrate (Lopressor) 25 mg PO BID [facility] Last Admin: 10/24/17 17:41 Dose: Not Given - Labs Labs: 10/23/17 07:44 10/23/17 07:44
--- NOTE | 2017-10-25 09:01 | CP.PCM.PN ---
Subjective - Date & Time of Evaluation Date of Evaluation: 10/25/17 Time of Evaluation: 23:30 - Subjective Subjective: pt is doing ok awaiting placement eating ok feeling weak Objective - Vital Signs/Intake and Output Vital Signs (last 24 hours): Temp Pulse Resp BP Pulse Ox 98.2 F 89 20 94/56 L 97 10/24/17 23:32 10/24/17 23:32 10/24/17 23:32 10/24/17 23:32 10/24/17 23:32 Intake and Output: 10/25/17 10/25/17 06:59 18:59 Intake Total 650 Balance 650 - Medications Medications: Current Medications Acetaminophen (Tylenol 325mg Tab) 650 mg PO Q6H PRN PRN Reason: Pain, Mild (1-3) Last Admin: 10/25/17 04:28 Dose: 650 mg Aspirin (Ecotrin) 81 mg PO DAILY [facility] Last Admin: 10/24/17 10:03 Dose: 81 mg Docusate Sodium (Colace) 100 mg PO BID [facility] Last Admin: 10/24/17 17:42 Dose: 100 mg Enalapril Maleate (Vasotec) 2.5 mg PO DAILY [facility] Last Admin: 10/24/17 10:08 Dose: 2.5 mg Furosemide (Lasix) 40 mg PO DAILY [facility] Last Admin: 10/21/17 10:39 Dose: 40 mg Ciprofloxacin (Cipro 200mg/100ml D5w) 100 mls @ 67 mls/hr IVPB Q12 [facility] Last Admin: 10/24/17 21:02 Dose: 67 mls/hr Lactulose (Enulose) 20 gm PO HS [facility] Last Admin: 10/24/17 21:02 Dose: 20 gm Metoprolol Tartrate (Lopressor) 25 mg PO BID [facility] Last Admin: 10/24/17 17:41 Dose: Not Given - Labs Labs: 10/23/17 07:44 10/23/17 07:44
--- NOTE | 2017-10-25 09:01 | CP.PCM.PN ---
Subjective - Date & Time of Evaluation Date of Evaluation: 10/23/17 Time of Evaluation: 08:59 - Subjective Subjective: The patient is still feeling somewhat depressed. He is eating okay. Cough minimally noted. Leg swelling is less He is awake in his legs with walking, denies any chest pain or shortness of breath no. Vital signs reviewed No neck vein distention noted Bilateral wheezing noted in the lungs CVS regular heart sound, no murmur noted Abdomen soft, nontender. 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 Very low ejection fraction. Hypertension. Dementia. Patient has a recurrent fall COPD. Lung mass. Objective - Vital Signs/Intake and Output Vital Signs (last 24 hours): Temp Pulse Resp BP Pulse Ox 98.2 F 89 20 94/56 L 97 10/24/17 23:32 10/24/17 23:32 10/24/17 23:32 10/24/17 23:32 10/24/17 23:32 Intake and Output: 10/25/17 10/25/17 06:59 18:59 Intake Total 650 Balance 650 - Medications Medications: Current Medications Acetaminophen (Tylenol 325mg Tab) 650 mg PO Q6H PRN PRN Reason: Pain, Mild (1-3) Last Admin: 10/25/17 04:28 Dose: 650 mg Aspirin (Ecotrin) 81 mg PO DAILY [facility] Last Admin: 10/24/17 10:03 Dose: 81 mg Docusate Sodium (Colace) 100 mg PO BID [facility] Last Admin: 10/24/17 17:42 Dose: 100 mg Enalapril Maleate (Vasotec) 2.5 mg PO DAILY [facility] Last Admin: 10/24/17 10:08 Dose: 2.5 mg Furosemide (Lasix) 40 mg PO DAILY [facility] Last Admin: 10/21/17 10:39 Dose: 40 mg Ciprofloxacin (Cipro 200mg/100ml D5w) 100 mls @ 67 mls/hr IVPB Q12 [facility] Last Admin: 10/24/17 21:02 Dose: 67 mls/hr Lactulose (Enulose) 20 gm PO HS [facility] Last Admin: 10/24/17 21:02 Dose: 20 gm Metoprolol Tartrate (Lopressor) 25 mg PO BID [facility] Last Admin: 10/24/17 17:41 Dose: Not Given - Labs Labs: 10/23/17 07:44 10/23/17 07:44
[2017-10-25] MEDS: Ciprofloxacin 200mg/100ml D5W 100 ML IVPB SCH ×2 (09:21→21:36)
[2017-10-26] MEDS: Ciprofloxacin 200mg/100ml D5W 100 ML IVPB SCH (09:43)
--- NOTE | 2017-10-26 23:32 | CP.PCM.PN ---
Subjective - Date & Time of Evaluation Date of Evaluation: 10/26/17 Time of Evaluation: 23:31 - Subjective Subjective: pt is sleeping comfortable no chest pain or sob eating ok continue current treatment will f/o rn social services eval for placement Objective - Vital Signs/Intake and Output Vital Signs (last 24 hours): Temp Pulse Resp BP Pulse Ox 98.0 F 94 H 20 95/53 L 96 10/26/17 15:00 10/26/17 15:00 10/26/17 15:00 10/26/17 17:58 10/26/17 15:00 Intake and Output: 10/26/17 10/27/17 18:59 06:59 Intake Total 580 300 Balance 580 300 - Medications Medications: Current Medications Acetaminophen (Tylenol 325mg Tab) 650 mg PO Q6H PRN PRN Reason: Pain, Mild (1-3) Last Admin: 10/26/17 20:14 Dose: 650 mg Aspirin (Ecotrin) 81 mg PO DAILY [facility] Last Admin: 10/26/17 09:42 Dose: 81 mg Docusate Sodium (Colace) 100 mg PO BID [facility] Last Admin: 10/26/17 17:58 Dose: 100 mg Enalapril Maleate (Vasotec) 2.5 mg PO DAILY [facility] Last Admin: 10/26/17 09:43 Dose: Not Given Furosemide (Lasix) 40 mg PO DAILY [facility] Last Admin: 10/21/17 10:39 Dose: 40 mg Heparin Sodium (Porcine) (Heparin) 5,000 units SC Q12 [facility] Last Admin: 10/26/17 21:19 Dose: 5,000 units Ciprofloxacin (Cipro 200mg/100ml D5w) 100 mls @ 67 mls/hr IVPB Q12 [facility] Last Admin: 10/26/17 09:43 Dose: 67 mls/hr Lactulose (Enulose) 20 gm PO HS [facility] Last Admin: 10/26/17 21:20 Dose: 20 gm Metoprolol Tartrate (Lopressor) 25 mg PO BID [facility] Last Admin: 10/26/17 17:58 Dose: Not Given - Labs Labs: 10/23/17 07:44 10/23/17 07:44
[2017-10-27 08:30] LABS: BASO % 0.5 % (0.0-2.0); EOS # 0.1 K/uL (0.0-0.7); EOS % 1.1 % (0.0-4.0); HEMOGLOBIN 11.6 g/dL (12.0-18.0); LYMPH # 1.3 K/uL (1.0-4.3); LYMPH % 13.2 % (20.0-40.0); MEAN CELL VOLUME 91.9 fL (80.0-94.0); MEAN CORPUSCULAR HEMOGLOBIN 32.6 pg (27.0-31.0); MEAN CORPUSCULAR HGB CONC 35.5 g/dL (33.0-37.0); MEAN PLATELET VOLUME 8.1 fL (7.2-11.7); MONO # 0.9 K/uL (0.0-0.8); MONO % 8.8 % (0.0-10.0); NEUT # 7.7 K/uL (1.8-7.0); NEUT % 76.4 % (50.0-75.0); RBC 3.55 Mil/uL (4.40-5.90); RED CELL DISTRIBUTION WIDTH 14.5 % (11.5-14.5); WHITE BLOOD COUNT 10.1 K/uL (4.8-10.8)
[2017-10-27 08:33] LABS: ALB/GLOB RATIO 0.8 (1.0-2.1); ALBUMIN 3.1 g/dL (3.5-5.0); ALT/SGPT 37 U/L (21-72); AST/SGOT 27 U/L (17-59); BLOOD UREA NITROGEN 14 mg/dL (9-20); GFR AFRICAN-AMERICAN > 60; GFR NON-AFRICAN AMERICAN > 60
[2017-10-27] MEDS: Ciprofloxacin 200mg/100ml D5W 100 ML IVPB SCH (10:16)
[2017-10-27 16:33] VITALS: TEMP 97.8
[2017-10-27 16:35] VITALS: PULSE 86; O2SAT 100
--- NOTE | 2017-10-27 17:05 | CP.PCM.PN ---
Subjective - Date & Time of Evaluation Date of Evaluation: 10/27/17 Time of Evaluation: 11:00 - Subjective Subjective: Alert, awake, follows commands, NAD. Objective - Vital Signs/Intake and Output Vital Signs (last 24 hours): Temp Pulse Resp BP Pulse Ox 97.8 F 86 20 85/49 L 100 10/27/17 16:31 10/27/17 16:00 10/27/17 16:00 10/27/17 16:00 10/27/17 16:00 Intake and Output: 10/27/17 10/27/17 06:59 18:59 Intake Total 300 660 Balance 300 660 - Medications Medications: Current Medications Acetaminophen (Tylenol 325mg Tab) 650 mg PO Q6H PRN PRN Reason: Pain, Mild (1-3) Last Admin: 10/27/17 16:31 Dose: 650 mg Aspirin (Ecotrin) 81 mg PO DAILY [facility] Last Admin: 10/27/17 10:15 Dose: 81 mg Docusate Sodium (Colace) 100 mg PO BID [facility] Last Admin: 10/27/17 10:17 Dose: 100 mg Enalapril Maleate (Vasotec) 2.5 mg PO DAILY [facility] Last Admin: 10/27/17 10:15 Dose: 2.5 mg Furosemide (Lasix) 40 mg PO DAILY [facility] Last Admin: 10/21/17 10:39 Dose: 40 mg Heparin Sodium (Porcine) (Heparin) 5,000 units SC Q12 [facility] Last Admin: 10/27/17 10:16 Dose: 5,000 units Ciprofloxacin (Cipro 200mg/100ml D5w) 100 mls @ 67 mls/hr IVPB Q12 [facility] Last Admin: 10/27/17 10:16 Dose: 67 mls/hr Lactulose (Enulose) 20 gm PO HS [facility] Last Admin: 10/26/17 21:20 Dose: 20 gm Metoprolol Tartrate (Lopressor) 25 mg PO BID [facility] Last Admin: 10/27/17 10:15 Dose: 25 mg - Labs Labs: 10/27/17 08:06 10/27/17 08:06 Assessment and Plan - Assessment and Plan (Free Text) Assessment: Patient is seen and examined, alert, no sob or chest pains noted. Has bed available at [facility] for rehab. Dw DR Shirley, plan to discharge today. Patient verbalized understanding. Will continue with PO cipro for 7 more days for UTI.
--- NOTE | 2017-10-27 17:44 | PCM.HF ---
Heart Failure Core Measure JUVENCIO Inhibitor Prescribed: Yes Beta-Gee Prescribed: Metoprolol Succinate
[2017-10-27 17:47] VITALS: BP 96/61
== END 2017-10-27 21:15 | DRG 690 ==
LOC: C.ER 12:02 → C.9E 15:48 → C.3T 18:31 → OBSVTOIN 10-21 10:33
PROVIDERS: ADMIT Internal Medicine; ATTEND Internal Medicine
DX: N39.0 Urinary tract infection, site not specified (principal); E11.22 Type 2 diabetes mellitus with diabetic chronic kidney disease; I13.0 Hypertensive heart and chronic kidney disease with heart failure and stage 1 through stage 4 chronic kidney disease, or unspecified chronic kidney disease; I50.22 Chronic systolic (congestive) heart failure; Z68.1 Body mass index [BMI] 19.9 or less, adult; W01.0XXA Fall on same level from slipping, tripping and stumbling without subsequent striking against object, initial encounter; E86.0 Dehydration; F03.90 Unspecified dementia, unspecified severity, without behavioral disturbance, psychotic disturbance, mood disturbance, and anxiety; J44.9 Chronic obstructive pulmonary disease, unspecified; I25.5 Ischemic cardiomyopathy; N18.9 Chronic kidney disease, unspecified; S20.222A Contusion of left back wall of thorax, initial encounter; Y92.009 Unspecified place in unspecified non-institutional (private) residence as the place of occurrence of the external cause; Z66 Do not resuscitate; Z85.46 Personal history of malignant neoplasm of prostate; Z95.0 Presence of cardiac pacemaker